=== PATIENT | male | born 1945 | race Caucasian/White ===

== ENCOUNTER 2019-12-09 01:03 | Outpatient (CLI) | payer MEDICARE, SELFPAY ==
[2019-12-09 19:09] LABS: SARS-CoV-2 RNA PCR Negative
== END 2019-12-09 01:04 | disposition home or self-care (01) ==
LOC: ANHCOVIDDT 01:05
PROVIDERS: PCP Family Medicine; Visit Provider Urology
DX: Z01.812 Encounter for preprocedural laboratory examination (principal); Z11.59 Encounter for screening for other viral diseases
CPT/HCPCS: 87635; C9803; U0003

== ENCOUNTER 2019-12-09 08:34 | Outpatient (CLI) | payer MEDICARE, SELFPAY ==
--- NOTE | 2019-12-09 09:10 | ECG_ITS ---
Measurements Intervals [place] Rate: 53 P: -23 ND: 160 QRS: 53 QRSD: 108 T: 20 QT: 377 QTc: 356 Interpretive Statements SINUS BRADYCARDIA POSSIBLE LEFT VENTRICULAR HYPERTROPHY BASELINE ARTIFACT- V4-V6 BORDERLINE ECG Electronically Signed On 12-09-2019 9:24:15 CDT by Naga Chambers D.O.
[2019-12-09 09:31] LABS: INR 0.9; Partial Thromboplastin Time 25.7 SECONDS (22.3-36.8); Prothrombin Time 12.3 Seconds (11.1-14.7)
[2019-12-09 09:35] LABS: Anion Gap 13.8 mmol/L (7-16); Blood Urea Nitrogen 24 mg/dL (9-20); Calcium 9.4 mg/dL (8.4-10.2); Carbon Dioxide 25 mmol/L (22-30); Chloride 103 mmol/L (98-107); Estimated Glomerular Filt Rate > 60; Glucose 169 mg/dL (75-110); Potassium 4.8 mmol/L (3.4-5.0); Sodium 137 mmol/L (137-145)
== END 2019-12-09 08:35 | disposition home or self-care (01) ==
LOC: ANHIMG 08:43
PROVIDERS: Anesthesiology; Urology; PCP Family Medicine; Visit Provider Urology
DX: N20.0 Calculus of kidney (principal); E11.9 Type 2 diabetes mellitus without complications
CPT/HCPCS: 36415; 80048; 85610; 85730; 87086; 87635; 93005; C9803; U0003

== ENCOUNTER 2019-12-10 00:23 | Day surgery (SDC) | payer MEDICARE, SELFPAY ==
[2019-12-08 16:17] VITALS: BMI 28.7
--- NOTE | 2019-12-09 11:13 | WPDANESEPPF ---
Anes - Initial Pre Proc Eval Procedure: Operation Date: 12/10/19 08:30 Proposed Procedures p Left Extracorporeal Shock Wave Lithotripsy - Bipin Ford MD Date/Time: 12/09/19 11:13 Surgeon: Bipin Ford MD Pre Op Diagnosis: Left Ureteral Stone Patient Data Age: 74 Gender: M Height: 1.78 m Weight: 90.9 kg Allergies Allergy/AdvReac Type Severity Reaction Status Date / Time bacitracin Allergy Unknown Nausea and Unverified 12/10/19 07:42 Vomiting neomycin Allergy Unknown SKIN Unverified 12/10/19 07:42 IRRITATION polymyxin B Allergy Unknown SKIN Unverified 12/10/19 07:42 IRRITATION Contrast Media Allergy Unknown Flushing Uncoded 12/10/19 07:42 Home Medications Medication Instructions Recorded Confirmed Type ascorbic acid (vitamin C) [Vitamin 1 g PO DAILY 12/08/19 12/08/19 History C] cinnamon bark [Cinnamon] 500 mg PO DAILY 12/08/19 12/08/19 History cyanocobalamin (vitamin B-12) 2,000 mcg PO DAILY 12/08/19 12/08/19 History fiber 3.4 g PO DAILY 12/08/19 12/08/19 History flaxseed oil 1,000 mg PO DAILY 12/08/19 12/08/19 History glimepiride 4 mg DAILY 12/08/19 12/08/19 History metformin 500 mg BID 12/08/19 12/08/19 History omega-3 fatty acids-fish oil [Fish 1 cap PO DAILY 12/08/19 12/08/19 History Oil] tamsulosin 4 mg PO HS 12/08/19 12/08/19 History Patient hx anesthesia problems: none Family hx anesthesia problems: none PMFSH Past Medical History Medical History (Updated 12/09/19 @ 11:13 by Nghia Patricia DO) Diabetes type 2, controlled DAPHNEY (obstructive sleep apnea) CPAP Social History Social History Smoking status: Never smoker Alcohol intake: never Substance use: never Living arrangements: with family Spiritual care concerns: No Anes - Eval Final PreProcedure Day of Procedure 12/09/19 11:13 Patient weight: overweight Heart: regular rate and rhythm Lungs: clear to auscultation and normal air movement Airway: Mallampati scale class II Neurological: alert and oriented Last oral intake: >/= 8 hours ASA classification: III Emergent: no Anesthetic plan: proceed Anesthesia type and monitoring: general LMA and standard monitoring Informed Consent: The patient's anesthetic plan and its attendant risks and benefits were discussed with the patient/family/POA. Questions were solicited and answers provided to the satisfaction of the patient/family/POA.
[2019-12-10] VITALS (7 sets, daily range): BP systolic 129–165; BP diastolic 64–97; PULSE 52–70; RESP 11–19; TEMP 36.3; O2SAT 99–100
--- NOTE | ~2019-12-10 | CT_ITS ---
EXAMINATION: CT abdomen pelvis wo con DATE: 12/10/2019 07:29 INDICATION: Lithotripsy. Left ureteral calculus. TECHNIQUE: Computed tomography (CT) of the abdomen and pelvis was performed without intravenous contr ast. Automated exposure control and iterative reconstruction technique were employed. Exam dose: 269 .14 mGy-cm total exam DLP. COMPARISON: 12/10/2019 KUB FINDINGS: Minimal discoid atelectasis or scarring in the lower lung zones. No infiltrate or consolida tion. Normal heart size. No pericardial or pleural effusion. The liver, gallbladder, bile ducts, spleen, pancreas and adrenal glands are unremarkable on this limi thu noncontrast examination. There are 2 nonobstructing lower pole right renal calculi measuring 3 mm or smaller. Approximately 4.5 and 5.5 mm nonobstructing lower pole left renal calculi. Approximately 5.6 x 4.3 x 7.2 mm left ureteral calculus at the L4 level. There is minimal if any left hydronephrosis. Urinary bladder is unremarkable. Moderate prostate prominence and multiple prostate calcifications. Normal caliber of the abdominal aorta. No intraperitoneal or retroperitoneal or pelvic mass lesion or adenopathy or ascites. There are numerous diverticula of the colon, primarily in the sigmoid area. No CT evidence of diverti culitis. Normal appendix. No bowel obstruction, bowel wall thickening, pneumatosis or intraperitoneal free air. Included skeletal structures are unremarkable. IMPRESSION: 5.6 x 4.3 x 7.2 mm left ureteral calculus at L4 level Bilateral nonobstructive nephrolithiasis Diverticulosis of the colon Reviewed, dictated and finalized at [facility] Reviewed, dictated and finalized at [facility].
--- NOTE | ~2019-12-10 | XR_ITS ---
XR abdomen/kub 1V DATE: 12/10/2019 06:42 INDICATION: Lithotripsy TECHNIQUE: AP projection, 2 views COMPARISON: None FINDINGS: There are 2 approximately 5 and 6 mm calcifications overlying the lower pole left kidney. There is an approximately 6 mm calcified density overlying the left ureter at the L4 level, likely a left ureteral calcified calculus. The psoas shadows are intact. No visceromegaly is evident. The bowel gas pattern is unremarkable, wit hout evidence of obstruction. IMPRESSION: Probable lower pole left renal and proximal to mid left ureteral calcified calculi Reviewed, dictated and finalized at [facility] Reviewed, dictated and finalized at [facility] IMPRESSION: Probable lower pole left renal and proximal to mid left ureteral ca lcified calculi
[2019-12-10] MEDS: LACTATED RINGERS 1,000 ML 30 ML IV CONT ×2 (08:00→09:26)
--- NOTE | 2019-12-10 08:06 | WPDHPUPDATE1 ---
History and Physical Update Update Date/Time: 12/10/19 08:06 History and Physical has been reviewed, including an updated exam of the patient. There are NO changes in the patient's condition. Risks, benefits, and alternatives have been discussed and questions answered. Patient agrees to proceed with procedure.Plan for eswl of left ureteral calculus.
[2019-12-10 08:13] LABS: Glucose Point of Care 183 (65-105)
[2019-12-10] MEDS: ceFAZolin 2 GM/D5W 50 ML 2 GM/50 ML BAG IVPB (08:31)
--- NOTE | 2019-12-10 09:11 | P.OP_ITS ---
Procedure Note - Detailed Date of procedure: 12/10/19 Pre-op diagnosis: Left Ureteral Stone Post-op diagnosis: same Procedure performed: ESWL left ureteral calculus 7 mm Description of procedure: patient was taken to the operative suite and c orrectly identified. Once general anesthesia was obtained the stone was localized in both planes. Three thousand shocks were given to the stone. Patient tolerated procedure well without any complications and was taken recovery room stable condition. He is instructed to call us if he develops any problems. Anesthesia: GLMA Surgeon: Bipin Ford MD Drains: No Packing: No Pathology: yes Complications: No immediate complications Condition: stable Disposition: PACU
[2019-12-10 09:39] LABS: Glucose Point of Care 150 (65-105)
== END 2019-12-10 10:51 | disposition home or self-care (01) ==
PROVIDERS: PCP Family Medicine; Visit Provider Urology
PROC: (CPT 50590; principal; 2019-12-10 08:30)
DX: N20.1 Calculus of ureter (principal); E11.9 Type 2 diabetes mellitus without complications; G47.33 Obstructive sleep apnea (adult) (pediatric); Z79.84 Long term (current) use of oral hypoglycemic drugs
CPT/HCPCS: 50590; 74018; 74176; A9270; J0690; J2250; J2405; J2704; J3010; J7120

== ENCOUNTER 2019-12-22 08:03 | Outpatient (CLI) | payer MEDICARE, SELFPAY ==
--- NOTE | ~2019-12-22 | XR_ITS ---
EXAMINATION: XR abdomen/kub 1V DATE: 12/22/2019 08:21 INDICATION: Calculus of left ureter. TECHNIQUE: A supine view of the abdomen on 2 radiographs was obtained. COMPARISON: CT abdomen and pelvis 10/10/2019 FINDINGS: There are two 5 mm stones in left kidney lower pole. There is a phlebolith in left pelvis. There are vascular calcifications in the pelvis. The left ureteral stone previously seen at L4 is no longer visible. There are no dilated loops of bowel. IMPRESSION: 1. Left kidney stones. Reviewed, dictated and finalized at [facility]. IMPRESSION: 1. Left kidney stones.
== END 2019-12-22 08:04 | disposition home or self-care (01) ==
LOC: ANHIMG 08:10
PROVIDERS: PCP Family Medicine; Visit Provider Urology
DX: N20.0 Calculus of kidney (principal)
CPT/HCPCS: 74018

== ENCOUNTER 2020-05-31 15:15 | Outpatient (CLI) | payer MEDICARE, SELFPAY ==
--- NOTE | ~2020-05-31 | XR_ITS ---
XR abdomen/kub 1V DATE: 05/31/2020 16:05 INDICATION: History of kidney stones TECHNIQUE: AP projection, 2 views COMPARISON: 12/22/2019 KUB 12/10/[address] abdomen pelvis FINDINGS: There is no significant change of approximately two 4-5 mm calcified stones at the lower po le of the left kidney compared to 12/22/2019 KUB. No other definite urinary tract calcification is not ed. 2 lower pole pinpoint nonobstructing right kidney stones were noted on 12/10/2019 CT abdomen pelvis examination but were radiographically occult on 12/22/[address] abdomen pelvis examina tion would be more sensitive for detection of urinary tract calculi. The psoas shadows are intact. No visceromegaly is evident. There is a moderately prominent amount of fecal material in the colon but no evidence of bowel obstruction. Included skeletal structures are unremarkable. IMPRESSION: Lower pole left nephrolithiasis appears relatively stable since 12/22/2019 Reviewed, dictated and finalized at [facility] Reviewed, dictated and finalized at [facility]. FILLER IMPRESSION: Lower pole left nephrolithiasis appears relatively stable since 12/03
== END 2020-05-31 15:16 | disposition home or self-care (01) ==
LOC: ANHIMG 15:27
PROVIDERS: PCP Family Medicine; Visit Provider Urology
DX: N20.0 Calculus of kidney (principal)
CPT/HCPCS: 74018

== ENCOUNTER 2022-07-03 11:24 | Outpatient (CLI) | payer MEDICARE, SELFPAY ==
--- NOTE | ~2022-07-03 | XR_ITS ---
Supine and upright views of the abdomen Clinical history: Renal stones COMPARISON: 05/31/2020 Findings: Bowel gas pattern is nonspecific. No evidence for obstruction or free air. Suspected 5 mm l eft lower pole renal stone. Osseous structures are intact. Impression: Suspected 5 mm left lower pole renal stone. Reviewed, dictated and finalized at [facility]. [employer] Impression: Suspected 5 mm left lower pole renal stone.
== END 2022-07-03 11:25 | disposition home or self-care (01) ==
PROVIDERS: PCP Family Medicine; Visit Provider Urology
DX: N20.0 Calculus of kidney (principal)
CPT/HCPCS: 74018

== ENCOUNTER 2023-01-12 12:33 | Emergency (ER) | payer MEDICARE, SELFPAY ==
[2023-01-12 12:40] VITALS: BP 126/70; PULSE 82; RESP 20; TEMP 36.4; O2SAT 100
--- NOTE | 2023-01-12 13:34 | WPDEDEXPGENP ---
HPI - General Ped General Chief complaint: Fever Stated complaint: fever/lower back pain Source: patient Mode of arrival: ambulatory Limitations: no limitations Nursing Documentation: reviewed/agree History of Present Illness HPI narrative: Patient presents requesting a medical screening evaluation. He indicates two nights ago he was experiencing some low back pain. He had about three episodes of nocturia that night. The following morning he woke from sleep with generalized body aches and subjective fever. He never experienced any dysuria, decreased force of urinary stream, hematuria. He has some chronic dribbling which he attributes to BPH, for which he takes Flomax. He has experienced kidney stones in the past but the pain he experienced 2 nights ago was bilateral in nature. At the present time he denies any symptoms whatsoever. He is getting ready to leave town for a vacation so wanted to be evaluated prior to the time of departure. Related Data Home Medications Medication Instructions Recorded Confirmed ascorbic acid (vitamin C) 1,000 mg 1 g PO DAILY 12/08/19 12/08/19 tablet (Vitamin C) cinnamon bark 500 mg capsule 500 mg PO DAILY 12/08/19 12/10/19 (Cinnamon) cyanocobalamin (vitamin B-12) 2,000 mcg PO DAILY 12/08/19 12/10/19 2,000 mcg tablet flaxseed oil 1,000 mg capsule 1,000 mg PO DAILY 12/08/19 12/10/19 glimepiride 4 mg tablet 4 mg DAILY 12/08/19 12/10/19 metformin 500 mg tablet 500 mg BID 12/08/19 12/10/19 omega-3 fatty acids-fish oil 360 1 cap PO DAILY 12/08/19 12/10/19 mg-1,200 mg capsule (Fish Oil) psyllium seed (with dextrose) oral 3.4 g PO DAILY 12/08/19 12/10/19 powder (fiber) tamsulosin 0.4 mg capsule 4 mg PO HS 12/08/19 12/10/19 rosuvastatin 20 mg tablet mg 01/12/23 Allergies Allergy/AdvReac Type Severity Reaction Status Date / Time bacitracin Allergy Unknown Nausea and Verified 12/10/19 08:42 Vomiting neomycin Allergy Unknown SKIN Verified 12/10/19 08:42 IRRITATION polymyxin B Allergy Unknown SKIN Verified 12/10/19 08:42 IRRITATION Contrast Media Allergy Unknown Flushing Uncoded 12/10/19 07:42 Pediatric Review of Systems Review of Systems: CONSTITUTIONAL: Reports recent subjective fever, now resolved. Denies chills or sweats. EYES: Denies visual changes, redness, or discharge. ENT: Denies rhinorrhea, congestion, sore throat, or otalgia. CARDIOVASCULAR: Denies chest pain, palpitations, or edema. RESPIRATORY: Denies cough or dyspnea. GASTROINTESTINAL: Denies abdominal pain, nausea, vomiting, or diarrhea. GENITOURINARY: Reports chronic dribbling. Reports nocturia 2 nights ago. Denies any current urinary symptoms. SKIN: Denies rash or itching. MUSCULOSKELETAL: Reports recent low back pain, now resolved. Denies joint pain, or myalgia. NEUROLOGIC: Denies headache, numbness, dizziness, or weakness. PSYCHIATRIC: Denies anxiety or depression. [facility] Past Medical History Medical History Diabetes type 2, controlled DAPHNEY (obstructive sleep apnea) CPAP Surgical History Surgical History No pertinent past surgical history Family History Family History Mother Family history non-contributory Social History Social History Smoking status: Never smoker Alcohol intake: never Substance use: never Living arrangements: with family Gender identity (if verbalized by the patient): Male Sexual Orientation (if Verbalized by the Patient): Straight or Heterosexual Spiritual care concerns: No Pediatric Exam Narrative: Physical exam: GENERAL: Well-appearing, well-nourished, and in no acute distress. HEAD: Normocephalic, atraumatic. EYES: PERRLA and EOMI. ENT: Nares clear, no rhinorrhea or epistaxis. Mucous membranes mois
== END 2023-01-12 13:39 | disposition home or self-care (01) ==
PROVIDERS: Emergency Provider Nurse Practitioner; PCP Family Medicine
DX: M54.50 Low back pain, unspecified (principal); R35.1 Nocturia; E11.9 Type 2 diabetes mellitus without complications; G47.33 Obstructive sleep apnea (adult) (pediatric)
CPT/HCPCS: 81003; 99212; G0463

== ENCOUNTER 2023-07-11 09:28 | Outpatient (CLI) | payer MEDICARE, SELFPAY ==
--- NOTE | ~2023-07-11 | XR_ITS ---
Supine and upright views of the abdomen Clinical history: Renal stone COMPARISON: 07/03/2022 Findings: Bowel gas pattern is nonspecific. No evidence for obstruction or free air. Left lower pole renal stones measure up to 9 mm in maximum diameter. Probable small right renal stones also present. Osseous structures are intact. Impression: Bilateral nephrolithiasis, as above. Reviewed, dictated and finalized at [facility]. [employer] Impression: Bilateral nephrolithiasis, as above.
== END 2023-07-11 09:29 | disposition home or self-care (01) ==
LOC: ANHIMG 09:33
PROVIDERS: PCP Family Medicine; Visit Provider Urology
DX: N20.0 Calculus of kidney (principal)
CPT/HCPCS: 74018

== ENCOUNTER 2024-02-12 16:54 | Emergency (ER) | payer MEDICARE, OTHER, SELFPAY ==
[2024-02-12 17:08] VITALS: BP 144/73; PULSE 77; RESP 20; TEMP 36.7; O2SAT 100
[2024-02-12 17:54] LABS: EDCOVIDSCREEN Negative (Negative); EDINFLUASCREEN Negative (Negative); EDINFLUBSCREEN Negative (Negative)
--- NOTE | 2024-02-12 21:21 | ED.URI ---
HPI - URI/Sore Throat General Chief Complaint: Upper Respiratory Infection Stated Complaint: cold symptoms Time Seen by Provider: 02/12/24 17:19 Source: patient, RN notes reviewed and old records reviewed Mode of arrival: ambulatory Limitations: no limitations History of Present Illness HPI Narrative: 78-year-old male to Express Care with complaint of cough, bilateral ear fullness / discomfort /popping, runny nose. Patient endorses decreased hearing in right ear. Patient reports flying home from [place] this morning and states that symptoms have become acutely worse post flight. Related Data Home Medications Medication Instructions Recorded Confirmed ascorbic acid (vitamin C) 1,000 mg 1 g PO DAILY 12/08/19 02/12/24 tablet (Vitamin C) cinnamon bark 500 mg capsule 500 mg PO DAILY 12/08/19 02/12/24 (Cinnamon) flaxseed oil 1,000 mg capsule 1,000 mg PO DAILY 12/08/19 02/12/24 glimepiride 4 mg tablet 4 mg PO BID 12/08/19 02/12/24 metformin 500 mg tablet 1,000 mg PO BID 12/08/19 02/12/24 omega-3 fatty acids-fish oil 360 1 cap PO DAILY 12/08/19 02/12/24 mg-1,200 mg capsule (Fish Oil) tamsulosin 0.4 mg capsule 0.4 mg PO HS 12/08/19 02/12/24 rosuvastatin 20 mg tablet 20 mg PO DAILY 01/12/23 02/12/24 Allergies Allergy/AdvReac Type Severity Reaction Status Date / Time bacitracin Allergy Unknown Nausea and Verified 02/12/24 17:01 Vomiting neomycin Allergy Unknown SKIN Verified 02/12/24 17:01 IRRITATION polymyxin B Allergy Unknown SKIN Verified 02/12/24 17:01 IRRITATION iohexol AdvReac Intermediate Flushing Verified 02/12/24 17:02 [From contrast - CT, X-RAY] Review of Systems Review of Systems: All systems reviewed & are unremarkable except as noted in HPI and below Constitutional: Constitutional: Reports no additional constitutional complaints Eyes: Eyes: Reports no additional eye complaints ENT: Reports as per HPI, Reports otalgia ( Bilateral fullness, popping) and Reports hearing loss ( right) Cardiovascular: Cardiovascular: Reports no additional cardiovascular complaints, Denies chest pain and Denies dyspnea Respiratory: Respiratory: Reports as per HPI, Reports cough and Denies dyspnea Musculoskeletal: Musculoskeletal: Reports no additional musculoskeletal complaints Neurologic: Reports system reviewed and no additional complaints, except as documented Psychiatric: Psychiatric: Reports no additional psychiatric complaints PMFSH Past Medical History Medical History Diabetes type 2, controlled DAPHNEY (obstructive sleep apnea) CPAP Surgical History Surgical History No pertinent past surgical history Family History Family History Mother Family history non-contributory Social History Social History Smoking status: Never smoker Alcohol intake: never Substance use: never Living arrangements: with family Gender identity (if verbalized by the patient): Male Sexual Orientation (if Verbalized by the Patient): Straight or Heterosexual Spiritual care concerns: No Comments At the time of my signature, I reviewed and agree with the nursing past medical, surgical, social, and family history. There is no relevant family history pertinent to the patient complaint. Exam Const: General: cooperative, healthy appearing, no acute distress, well developed, alert, well groomed and well nourished Nutritional Appearance: well nourished Orientation/consciousness: patient oriented x3 Limitations: no limitations HENMT: Head: normal to inspection Ears: external ears normal and TM abnormal erythematous on the right, with fluid behind the TM on the right and with loss of landmarks on the right Face/Nose/Sinus: Normal external nose present, Normal nares
== END 2024-02-12 17:48 | disposition home or self-care (01) ==
PROVIDERS: Emergency Provider Nurse Practitioner Family; PCP Family Medicine
DX: H66.91 Otitis media, unspecified, right ear (principal); Z20.822 Contact with and (suspected) exposure to COVID-19; E11.9 Type 2 diabetes mellitus without complications; G47.33 Obstructive sleep apnea (adult) (pediatric)
CPT/HCPCS: 87426; 87804; 99213; G0463

== ENCOUNTER 2024-02-29 10:39 | Emergency (ER) | payer MEDICARE, OTHER, SELFPAY ==
[2024-02-29 10:45] VITALS: BP 131/50; PULSE 72; RESP 17; TEMP 36.8; O2SAT 99
[2024-02-29] MEDS: TETANUS,DIPHTHERIA,AC PERTUSSIS ADULT (0.5 ML) BOOSTRIX IM (11:36)
--- NOTE | 2024-02-29 11:46 | ED.GENADULT ---
HPI - General Adult General Chief complaint: Extremity Injury, Upper Stated complaint: Finger Injury Source: patient Mode of arrival: ambulatory Limitations: no limitations History of Present Illness HPI narrative: Patient presents for evaluation of a wound to the palmar aspect of the distal phalanx of the left ring finger. Symptom onset last night. He was connecting to piece of pipe when his finger got stuck between the pieces. He initially had sharp pain but denies pain at the present time. No loss of range of motion. He will had a Band-Aid. It is no longer bleeding. He is right-hand dominant. Date of last tetanus unknown. He is diabetic. He is not checking his blood sugar at home but believes his last A1c was 7.9. Related Data Home Medications Medication Instructions Recorded Confirmed ascorbic acid (vitamin C) 1,000 mg 1 g PO DAILY 12/08/19 02/12/24 tablet (Vitamin C) cinnamon bark 500 mg capsule 500 mg PO DAILY 12/08/19 02/12/24 (Cinnamon) flaxseed oil 1,000 mg capsule 1,000 mg PO DAILY 12/08/19 02/12/24 glimepiride 4 mg tablet 4 mg PO BID 12/08/19 02/12/24 metformin 500 mg tablet 1,000 mg PO BID 12/08/19 02/12/24 omega-3 fatty acids-fish oil 360 1 cap PO DAILY 12/08/19 02/12/24 mg-1,200 mg capsule (Fish Oil) tamsulosin 0.4 mg capsule 0.4 mg PO HS 12/08/19 02/12/24 rosuvastatin 20 mg tablet 20 mg PO DAILY 01/12/23 02/12/24 prednisolone acetate 1 % eye drp 02/29/24 02/29/24 drops,suspension Allergies Allergy/AdvReac Type Severity Reaction Status Date / Time bacitracin Allergy Unknown Nausea and Verified 02/29/24 10:50 Vomiting neomycin Allergy Unknown SKIN Verified 02/29/24 10:50 IRRITATION polymyxin B Allergy Unknown SKIN Verified 02/29/24 10:50 IRRITATION iohexol AdvReac Intermediate Flushing Verified 02/29/24 10:50 [From contrast - CT, X-RAY] Review of Systems Review of Systems: CONSTITUTIONAL: Denies fever, chills, or sweats. EYES: Denies visual changes, redness, or discharge. ENT: Denies rhinorrhea, congestion, sore throat, or otalgia. CARDIOVASCULAR: Denies chest pain, palpitations, or edema. RESPIRATORY: Denies cough or dyspnea. GASTROINTESTINAL: Denies abdominal pain, nausea, vomiting, or diarrhea. GENITOURINARY: Denies dysuria or hematuria. SKIN: Reports wound to the left ring finger MUSCULOSKELETAL: Denies back pain, joint pain, or myalgia. NEUROLOGIC: Denies headache, numbness, dizziness, or weakness. PSYCHIATRIC: Denies anxiety or depression. [facility] Past Medical History Medical History Diabetes type 2, controlled DAPHNEY (obstructive sleep apnea) CPAP Surgical History Surgical History No pertinent past surgical history Family History Family History Mother Family history non-contributory Social History Social History Smoking status: Never smoker Alcohol intake: never Substance use: never Living arrangements: with family Gender identity (if verbalized by the patient): Male Sexual Orientation (if Verbalized by the Patient): Straight or Heterosexual Spiritual care concerns: No Exam Narrative: GENERAL: Well-appearing, well-nourished, and in no acute distress. HEAD: Normocephalic, atraumatic. EYES: PERRLA and EOMI. ENT: Nares clear, no rhinorrhea or epistaxis. Mucous membranes moist. Oropharynx without tonsillar hypertrophy exudate or other lesions. Bilateral TMs pearly patel nonbulging NECK: Supple. No adenopathy or masses. No carotid bruits or JVD CHEST: Clear to auscultation. No respiratory distress. No wheezes rales or rhonchi HEART: Regular rate and rhythm. No murmur heard. Normal peripheral pulses. ABDOMEN: Soft, nontender, nondistended, normal active bowel sounds. EXTREMITIES: Normal range of motion. No edema. SKIN: 5 mm area of excoriation to the palmar aspect of the distal phalanx of the left ring finger. Wound bed red. No active drainage NEURO: No focal deficits. Alert and oriented x3. PSYCH: Normal mood and affect. Course Course Emergency Course: This is a 78-year-old male who presented for evaluation of wound to left ring finger. Denies pain warranting any imaging. At the present time wound does not appear infected. He will continue to use antibiotic ointment. Will provided with a prescription for cephalexin but he should only take if he develops redness of signs of infection. Advised he needs to monitor his blood sugar closely and with readings over 200 it may cause delayed wound healing. Follow-up provider. Go to the ER for worsening symptoms. Patient in agreement with plan care Level of Care: Express Care Visit Vital Signs Vital signs: Vital Signs Temperature 36.8 C 02/29/24 10:45 Pulse Rate 72 02/29/24 10:45 Respiratory Rate 17 02/29/24 10:45 Blood Pressure 131/50 L 02/29/24 10:45 Pulse Oximetry 99 02/29/24 10:45 Oxygen Delivery Room Air 02/29/24 10:45 Temperature 36.8 C 02/29/24 10:45 Pulse Rate 72 02/29/24 10:45 Respiratory Rate 17 02/29/24 10:45 Blood Pressure 131/50 L 02/29/24 10:45 Pulse Oximetry 99 02/29/24 10:45 Oxygen Delivery Room Air 02/29/24 10:45 Medical Decision Making Vital Signs Vital Signs: Vital Signs Temperature 36.8 C 02/29/24 10:45 Pulse Rate 72 02/29/24 10:45 Respiratory Rate 17 02/29/24 10:45 Blood Pressure 131/50 L 02/29/24 10:45 Pulse Oximetry 99 02/29/24 10:45 Oxygen Delivery Room Air 02/29/24 10:45 Temperature 36.8 C 02/29/24 10:45 Pulse Rate 72 02/29/24 10:45 Respiratory Rate 17 02/29/24 10:45 Blood Pressure 131/50 L 02/29/24 10:45 Pulse Oximetry 99 02/29/24 10:45 Oxygen Delivery Room Air 02/29/24 10:45 Discharge Plan Discharge Clinical Impression: Abrasion of left ring finger Patient Disposition: Home, Self-Care Condition: Stable Instructions: Antibiotic Form, Abrasion (ED) Patient Language: [place] Prescriptions: New cephalexin 500 mg capsule 500 mg PO Q6H Qty: 40 0RF No Action rosuvastatin 20 mg tablet 20 mg PO DAILY prednisolone acetate 1 % drops,suspension metformin 500 mg tablet 1,000 mg PO BID ascorbic acid (vitamin C) [Vitamin C] 1,000 mg Tablet 1 g PO DAILY flaxseed oil 1,000 mg Capsule 1,000 mg PO DAILY tamsulosin 0.4 mg capsule 0.4 mg PO HS glimepiride 4 mg tablet 4 mg PO BID cinnamon bark [Cinnamon] 500 mg Capsule 500 mg PO DAILY omega-3 fatty acids-fish oil [Fish Oil] 360-1,200 mg Capsule 1 cap PO DAILY Follow-up/Referrals: Harms,Jose Armando Ramirez M.D. [Primary Care Provider] - Time of Disposition: 11:35
== END 2024-02-29 11:41 | disposition home or self-care (01) ==
PROVIDERS: Emergency Provider Nurse Practitioner; PCP Family Medicine
DX: S60.415A Abrasion of left ring finger, initial encounter (principal); X58.XXXA Exposure to other specified factors, initial encounter; Z23 Encounter for immunization; E11.9 Type 2 diabetes mellitus without complications; G47.33 Obstructive sleep apnea (adult) (pediatric)
CPT/HCPCS: 90471; 90715; 99213; G0463

== ENCOUNTER 2024-07-27 14:40 | Outpatient (CLI) | payer MEDICARE, SELFPAY ==
--- NOTE | ~2024-07-27 | XR_ITS ---
XR abdomen/kub 1V 07/27/2024 15:01 Indication: Ureteral stone Procedure: KUB Comparison: 07/11/2023 Findings: There are bilateral renal stones. Bowel gas pattern nonobstructive with moderate colonic fe tess loading. Mild lumbar spondylosis. No acute osseous abnormality. Impression: 1: Bilateral nephrolithiasis. Reviewed, dictated and finalized at location A. Impression: 1: Bilateral nephrolithiasis.
--- OUTSIDE RECORDS SUMMARY | 2024-07-27 17:13 | XMS_ITS | Referral Summary ---
Author Organization [facility] Medical Office Building B Address [address] [place] [address] Care Team Providers [facility] [place] [facility] Name Role Phone Jose Armando Meadows MD Primary Care Provider [phone] Encounters Date Type Department Care Team Description 06/22/2024 8:15 AM STEEL INSPECTOR Office Visit [facility] Primary Care at [address] [address] Jose Armando Meadows MD Type 2 diabetes mellitus with hyperglycemia, without long-term current use of insulin (HCC) (Primary Dx); Coronary artery disease of [place] artery of [place] heart with stable angina pectoris; Hyperlipidemia associated with type 2 diabetes mellitus (HCC); Benign prostatic hyperplasia, unspecified whether lower urinary tract symptoms present; DAPHNEY on CPAP 06/18/2024 10:05 AM STEEL INSPECTOR Lab [facility] [address] [place] [address] Controlled type 2 diabetes mellitus without complication, without long-term current use of insulin (HCC) 06/17/2024 Telephone [facility] [address] [place] [address] Jose Armando Meadows MD Additional Services Or Orders from Last 3 Months Allergies Active Allergy Reactions Criticality Noted Date Comments Bacitracin Nausea & Vomiting Low 12/10/2019 Bacitracin-Polymyxin B Hives Medium 06/18/2023 Iodinated Contrast Media Other (See comments),Anaphylaxis High 12/27/2015 Reaction: FLUSHING, Metrizamide Anaphylaxis High 12/27/2015 Neomycin Other (See comments) Low 12/10/2019 Kyhinoio-Xzdgjyqhpf-Ra lymyxin Other (See comments) Reaction: NON-HEALING OF WOUND, REDNESS OF SKIN, Polymyxin B Other (See comments) Low 12/10/2019 Medications saw palmetto 160 mg capsule Take as directed 0 0 7 Active cinnamon bark (CINNAMON) 500 mg capsule Take as directed 0 0 7 Active ascorbic acid, vitamin C, 1,000 mg tablet,chewable Take as directed 0 0 7 Active omega-3 fatty acids (FISH OIL CONCENTRATE) 1,000 mg capsule Take one by mouth one time per day 0 0 9 Active cyanocobalamin, vitamin B-12, 1,000 mcg tablet extended release Take by mouth. Active flaxseed 1,000 mg capsule Take by mouth. Active multivitamin tablet tabletIndications: Vitamin Deficiency Prevention Take by mouth. Active garlic extract 600 mg tabletIndications: Type 2 diabetes mellitus without complication, without long-term current use of insulin (HCC) Take 1,200 mg by mouth 2 (two) times a day. Active acidophilus-pectin , citrus 100 million cell-10 mg capsuleIndications :Type 2 diabetes mellitus without complication, without long-term current use of insulin (HCC) Take 2 tablets by mouth daily. Active inulin (FIBER GUMMIES ORAL) Take by mouth Ac tive aspirin 81 mg enteric coated tablet Take 1 tablet (81 mg total) by mouth daily 30 tablet 11 0 Active mupirocin (BACTROBAN) 2 % ointmentIndication s:Superficial laceration Apply topically 3 (three) times a day 22 g 0 Active blood glucose diagnostic stripIndications:T ype 2 diabetes mellitus with hyperlipidemia (HCC) Use to check blood glucose up to four times daily. Dx: E11.69 Non insulin Dependent One Touch Ultra 360 each 2 1 Active blood glucose diagnostic (FreeStyle Test) strip Use to check blood glucose up to daily Dx: E11.69 Non Insulin Dependent One Touch Ultra 100 each 2 1 Active glimepiride (AMARYL) 4 mg tablet TAKE 2 TABLETS(8 MG) BY MOUTH DAILY BEFORE BREAKFAST 180 tablet 3 4 Active difluprednate (DUREZOL) 0.05 % drops INSTILL 1 DROP IN LEFT EYE THREE TIMES DAILY DIRECTED 4 Active nystatin cream APPLY TO RASH IN GROIN TWICE DAILY FOR 6 WEEKS OR UNTIL RESOLVED 4 Active rosuvastatin (CRESTOR) 20 mg tablet TAKE 1 TABLET(20 MG) BY MOUTH DAILY 90 tablet 1 4 Active tamsulosin (FLOMAX) 0.4 mg extended release capsule TAKE 1 CAPSULE(0.4 MG) BY MOUTH DAILY 100 capsule 4 Active metFORMIN (GLUCOPHAGE) 500 mg tablet Take 2 tablets (1,000 mg total) by mouth 2 (two) times a day with meals 360 tablet 1 5 Active empagliflozin (JARDIANCE) 25 mg tablet Take 1 tablet (25 mg total) by mouth daily 90 tablet 3 5 Active Active Problems Problem Noted Date Diagnosed Date DAPHNEY on CPAP 06/22/2024 Assessment & Plan (06/22/2024 8:40 AM STEEL INSPECTOR): Continues on nightly CPAP and will follow response. Daytime increased energy, decreased fatigue. Benign prostatic hyperplasia 06/22/2024 Assessment & Plan (06/22/2024 8:40 AM STEEL INSPECTOR): COntinues on tamsulosin and krishna guillen and will follow response. Type 2 diabetes mellitus wit h hyperglycemia, without long-term current use of insulin 04/01/2023 Assessment & Plan (04/01/2023 3:08 PM STEEL INSPECTOR): Hba1c was Lab Results Component Value Date HGBA1C 7.2 04/01/2023 today, indicating suboptimal DM control Goal Hba1c under 7 and blood glucose level in the 120-160 range was explained Low carb diet and daily aerobic and /or resistant exercise were advised Prevention and treatment of hyypoglcyemia were discussed with the patient Blood glucose monitoring : 1 x day Adjustment to medications: Continue current regimen with Metformin and Glimepiride Might benefit form SGLS-2 inhinbitos, pt not interested Need for an eye exam was also explained. Type 2 diabetes mellitus wit h hyperglycemia, without long-term current use of insulin 09/05/2022 Assessment & Plan (06/22/2024 8:39 AM STEEL INSPECTOR): Needs improved control. Continue metformin and glimepiride. NO side effects to medication Initiate therapy with jardiance. Reivwed mechanisms of action, reviewed glucosuria and potential UTI/tinea infections. Aggressive hydration and will follow response. Assessment & Plan (09/05/2022 3:34 PM CDT): Hba1c was Lab Results Component Value Date HGBA1C 7.0 09/05/2022 today, indicating adequate DM control Goal Hba1c and blood glucose explained Diet and exercise were advised Prevention and treatment of hyypoglcyemia were discussed with the patient Risk of hypoglycemia with Glmepiride was explained Blood glucose monitoring : 1-2 x day Adjustment to medications: Continue with Metformin and glimepiride Would consider adding an SGLT-2 inhibitor if hba1c rises again Family history of colon cancer in father 021 Overview (02/20/2021): Added automatically from request for surgery [id number] Personal history of colonic polyps 02/20/2021 Overview (02/20/2021): Added automatically from request for surgery [id number] Encounter for screening colonoscopy 02/20/2021 Overview (02/20/2021): Added automatically from request for surgery [id number] Coronary artery disease of n ative artery of [place] heart with stable angina pectoris 01/19/2020 Assessment & Plan (06/22/2024 8:39 AM STEEL INSPECTOR): Secondary prevnetion. Continues on antiplatelet and statin therapy and will follow response. NO active anginal s/s. Assessment & Plan (02/20/2022 10:53 AM CDT): 1. Nonischemic Stress Echo to 90 percent MPHR. 2. Abnormal Stress ECG with ST changes suggestive of ischemia. 3. The Echocardiographic response was nonischemic. 4. Normal mitral valve appearance and function. Mild mitral valve regurgitation. 5. Normal tricuspid valve appearance and function. Mild tricuspid regurgitation. Normal right ventricular systolic pressure. He is stable so no rec., continue The ASA, Assessment & Plan (01/19/2020 1:20 PM CDT): Since he has a history of underlying coronary artery disease with least 25% lesions 8 years ago I would like to update a stress test and would be comfort with a stress echo at the present time. His chest pain that he describes today appears to be more musculoskeletal in nature rather than true anginal symptoms, but is important update that test. Also, he is not on aspirin so will begin coated baby aspirin 81 mg daily. His EKG today demonstrates sinus rhythm with only minor nonspecific T-wave changes, is otherwise unremarkable Calculus of kidney 09/09/2014 Overview (08/09/2016): Kidney stone Hyperlipidemia associated with type 2 diabetes denice dent 09/18/2013 Overview (08/09/2016): DMII WO CMP NT ST UNCNTR Assessment & Plan (06/22/2024 8:40 AM STEEL INSPECTOR): Stable and will follow response. Assessment & Plan (04/01/2023 3:07 PM STEEL INSPECTOR): Chronic, well controlled Continue Atorvastatin Assessment & Plan (09/05/2022 3:35 PM CDT): LDL goal under 70 explained Continue Rosuvastatin Assessment & Plan (02/20/2022 10:55 AM CDT): TC 90/ LDL 44 He remains at goal Continue the crestor 20 mg . Assessment & Plan (01/19/2020 1:14 PM CDT): TC 179/ HDL 29/ TG 136/ LDL 136 Since he is new, I discussed the benefits of statin therapy and will begin crestor 20 mg a day and recheck levels Immunizations Immunization Administration Dates Next Due Influenza, Quadrivalent, Hig h Dose, Preservative Free, Intrr 02/14/2020 Influenza, Quadrivalent, Spl it, Preservative Free, Intramuscular 04/09/2018 Influenza, Split 07/13/2013,07/13/2013 Influenza, Trivalent, High D ose, Split, Preservative Free, Intramuscular 04/06/2019 Influenza, Unspecified 03/05/2024,2023(Deferred: Patient Refused),06/24/2023(Deferred: Patient Refused),05/05/2023(Deferred: Patient Refused),12/17/2022(Deferred: Patient Refused),05/05/2022(Deferred: Patient Refused),05/05/2022(Deferred: Patient Refused),05/05/2021(Deferred: Patient Refused),02/20/2021,01/12/2021(Deferre d: Patient Refused),01/12/2021(Deferred: Patient Refused),01/12/2021(Deferred: Patient Refused),05/19/2017(Deferred: Patient Refused) Pfizer SARS-CoV-2 Monovalent Vaccination (12+ Yrs) PURPLE 02/20/2021,07/21/2020,06/29/2020 Pneumococcal Conjugate PCV 13 04/09/2018 Pneumococcal Polysaccharide PPV23 02/08/2015 Tdap 02/29/2024,06/16/2018 ZOSTER LIVE 05/18/2015 Social History Tobacco Use Types Packs/Day Years Used Date Smoking Tobacco: Never Smokeless Tobacco: Never Tobacco Cessation:Counseling Given: Not Answered Alcohol Use Standard Drinks/Week Comments No 0 (1 standard drink = 0.6 oz pur e alcohol) AUDIT-C Answer Date Recorded Q1: How often do you have a drink containing alc ohol? Never 06/12/2021 Average Number of Drinks Not on file 022 Frequency of Binge Drinking Not on file 12/2021 PHQ-2 Answer Date Recorded PHQ-2 Total Score (If total score is 3 or more points, staff should administer the PHQ-9) 0 06/22/2024 Sex and Gender Information Value Date Recorded Sex Assigned at Not on file Legal Sex Male 6:12 PM STEEL INSPECTOR Gender Identity Not on file Sexual Orientation Not on file Last Filed Vital Signs Vital Sign Reading Time Taken Comments Blood Pressure 136/68 06/22/2024 8:11 AM STEEL INSPECTOR Pulse 68 06/22/2024 8:11 AM STEEL INSPECTOR Temperature 36.8 C (98.2 F) 06/22/2024 8:11 AM STEEL INSPECTOR Respiratory Rate 18 04/01/2023 2:24 PM STEEL INSPECTOR Oxygen Saturation 98% 06/22/2024 8:11 AM STEEL INSPECTOR Inhaled Oxygen Concentration - - Weight 90.9 kg (200 lb 6.4 oz) 06/22/2024 8:11 A M STEEL INSPECTOR Height 177.8 cm (5' 10 ) 06/22/2024 8:11 AM STEEL INSPECTOR Body Mass Index 28.75 06/22/2024 8:11 AM STEEL INSPECTOR Plan of Treatment Not on file Procedures Procedure Name Priority Date/Time Associated Diagnosis Comments EGFR Routine 06/18/2024 10:12 AM STEEL INSPECTOR Controlled type 2 diabetes mellitus without complication, without long-term current use of insulin (HCC) DIFFERENTIAL AUTO Routine 06/18/2024 10: 12 AM STEEL INSPECTOR Controlled type 2 diabetes mellitus without complication, without long-term current use of insulin (HCC) LIPID PANEL Routine 06/18/2024 10:12 AM STEEL INSPECTOR Controlled type 2 diabetes mellitus without complication, without long-term current use of insulin (HCC) HEMOGLOBIN A1C Routine 06/18/2024 10:12 AM STEEL INSPECTOR Controlled type 2 diabetes mellitus without complication, without long-term current use of insulin (HCC) COMPREHENSIVE METABOLIC PANEL Routine 06/18/2024 10:12 AM STEEL INSPECTOR Controlled type 2 diabetes mellitus without complication, without long-term current use of insulin (HCC) CBC WITH AUTO DIFFERENTIAL Routine 06/18/2024 10:12 AM STEEL INSPECTOR Controlled type 2 diabetes mellitus without complication, without long-term current use of insulin (HCC) ALBUMIN CREATININE RATIO, URINE Routine 06/18/2024 10:12 AM STEEL INSPECTOR Controlled type 2 diabetes mellitus without complication, without long-term current use of insulin (HCC) DIABETIC EYE EXAM Routine 04/18/2023 COLONOSCOPY 06/12/2021 7:26 AM STEEL INSPECTOR from Last 3 Months or Most Recently Relevant to Health Maintenance Results * eGFR (06/18/2024 10:12 AM STEEL INSPECTOR) eGFR 85 >=60 mL/min/1. 73 m2 Comment: Interpretive Data Reference Interval Normal >/= 90 mL/min/1.73m2 Mildly decreased* 60 - 89 mL/min/1.73m2 Mildly to moderately decreased 45 - 59 mL/min/1.73m2 Moderately to severely decreased 30 - 44 mL/min/1.73m2 Severely decreased 15 - 29 mL/min/1.73m2 Kidney Failure < 15 mL/min/1.73m2 *Relative to young adult level Estimated glomerular filtration rate is determined by the 2020 CKD-EPI equation recommended by the National Kidney Foundation (A Unifying Approach to GFR Estimation: Recommendations of the NKF-ASK Task Force on Reassessing the Inclusion of Race in Diagnosing Kidney Disease, JASN 2020). The CKD-EPI equation should not be used for patients with unstable renal function and has not been validated in children and those over 70. Current interpretive data was last reviewed 2021. Testing performed by: [address], [address] Blood 06/18/2024 10:1 2 AM STEEL INSPECTOR 06/18/2024 1:30 PM STEEL INSPECTOR Jose Armando Meadows MD LAB BLOOD ORDERABLES Stephany ritter Result DAWN CONTRERAS ([place]) [facility] Department [place] [address] * Differential, auto (06/18/2024 10:12 AM STEEL INSPECTOR) Pathologist [facility] Neutrophil abs 2.3 1.5 - 6.5 K/cumm Comment:Testing performed by : [facility], [address] [place] [address]., [id number] Imm gran abs 0.0 0.0 - 0.1 K/cumm DAWN CONTRERAS ([place]) Comment:Testing performed by : [address], [address] Lymphocyte abs 1.2 0.8 - 3.3 K/cumm DAWN [facility] ([place]) Comment:Testing performed by : [address] [place]., [address] Monocyte abs 0.4 0.2 - 0.8 K/cumm [facility] ([place]) Comment:Testing performed by : [facility], [address] [place] [address]., [address] Eosinophil abs 0.3 0.0 - 0.5 K/cumm [facility] ([place]) Comment:Testing performed by : [facility], [address] [place] [address]., [address] Basophil abs 0.0 0.0 - 0.1 K/cumm [facility] ([place]) Comment:Testing performed by : [facility], [address] [place] [address]., [address] Neutrophil pct 54.0 % [facility] ([place]) Comment: Interpretive Data Percent cell count reference ranges are not reported, since discordance with absolute values may lead to misinterpretation of CBC data. Current Interpretive Data was last revised on 2017. Testing performed by: [address] [address] Imm gran pct 1.0 % [facility] ([place]) Comment: Interpretive Data Percent cell count reference ranges are not reported, since discordance with absolute values may lead to misinterpretation of CBC data. Current Interpretive Data was last revised on 2017. Testing performed by: [address] [address] Lymphocyte pct 27.8 % [facility] ([place]) Comment: Interpretive Data Percent cell count reference ranges are not reported, since discordance with absolute values may lead to misinterpretation of CBC data. Current Interpretive Data was last revised on 2017. Testing performed by: [address] [address] Monocyte pct 9.1 % [facility] ([place]) Comment: Interpretive Data Percent cell count reference ranges are not reported, since discordance with absolute values may lead to misinterpretation of CBC data. Current Interpretive Data was last revised on 2017. Testing performed by: [address] [address] Eosinophil pct 7.4 % [facility] ([place]) Comment: Interpretive Data Percent cell count reference ranges are not reported, since discordance with absolute values may lead to misinterpretation of CBC data. Current Interpretive Data was last revised on 2017. Testing performed by: [facility], [address] [place] [address]., [address] Basophil pct 0.7 % [facility] ([place]) Comment: Interpretive Data Percent cell count reference ranges are not reported, since discordance with absolute values may lead to misinterpretation of CBC data. Current Interpretive Data was last revised on 2017. Testing performed by: [address] [address] Blood 06/18/2024 10:1 2 AM STEEL INSPECTOR 06/18/2024 1:23 PM STEEL INSPECTOR Jose Armando Meadows MD LAB BLOOD ORDERABLES Stephany ritter Result [facility] ([place]) [facility] Department [place] [address] * CBC with auto differential (06/18/2024 10:12 AM STEEL INSPECTOR) WBC 4.2 3.8 - 9.9 K/cumm Comment:Testing performed by : [address], [address] Hgb 15.0 13.0 - 17.5 g/dL [facility] ([place]) Comment:Testing performed by : [address] [address] Hct 44.3 38.9 - 50.3 % [facility] ([place]) Comment:Testing performed by : [address] [address] Plt 199 150 - 400 K/cumm [facility] ([place]) Comment:Testing performed by : [address] [address] MPV 9.8 9.1 - 12.3 fL [facility] ([place]) Comment:Testing performed by : [address], [address] RBC 4.74 4.30 - 5.80 M/cumm [facility] ([place]) Comment:Testing performed by : [facility], [address] [place] [address], [address] MCV 93.5 81.3 - 96.4 fL [facility] ([place]) Comment:Testing performed by : [address], [address] MCH 31.6 27.1 - 33.3 pg [facility] ([place]) Comment:Testing performed by : [address], [address] MCHC 33.9 32.3 - 35.7 g/dL [facility] ([place]) Comment:Testing performed by : [facility], [address] [place] [address], [address] RDW CV 12.0 11.1 - 14.9 % [facility] ([place]) Comment:Testing performed by : [facility], [address] [place] [address], [address] RDW SD 41.7 35.7 - 48.1 fL [facility] ([place]) Comment:Testing performed by : [address], [address] NRBC abs 0.00 0.00 - 0.01 K/cumm [facility] ([place]) Comment:Testing performed by : [address], [address] Blood 06/18/2024 10:1 2 AM STEEL INSPECTOR 06/18/2024 1:23 PM STEEL INSPECTOR us Jose Armando Meadows MD LAB BLOOD ORDERABLES Stephany ritter Result [facility] ([place]) [facility] Department [place] [address] * (ABNORMAL) Albumin Creatinine Ratio, Urine (06/18/2024 10:12 AM STEEL INSPECTOR) Albumin Ur 30.9 mg/L Comment: Interpretive Data No reference range established. Current interpretive data was last revised 2018. Testing performed by: [address], [address] Creatinine Ur 84.1 mg/dL [facility] ([place]) Comment: Interpretive Data No reference range established. Current interpretive data was last revised 2018. Testing performed by: [facility], [address] [place] [address]., [address] Albumin Creatinine Ratio, Ur 37(H) 1 - 29 mg/g [facility] ([place]) Comment:Testing performed by : [address] [address] Urine 06/18/2024 10:1 2 AM STEEL INSPECTOR 06/18/2024 1:23 PM STEEL INSPECTOR Jose Armando Meadows MD LAB URINE ORDERABLES Stephany l Result Performing Organization Address City/[facility]/ZIP Co de Phone Number BELKISAC DIANE ([place]) [address] [place] [address] [place] [address] * (ABNORMAL) Hemoglobin A1c (06/18/2024 10:12 AM STEEL INSPECTOR) Hgb A1C 8.8(H) 4.0 - 5.6 % Comment:Testing performed by : [facility], [address] [place] [address], [address] Estimated Average Glucose 206 mg/dL DAWN CONTRERAS ([place]) Comment: The ADA recommends reporting an estimated Average Glucose (eAG) with all Hemoglobin A1c results using the equation derived from a study of 507 normal and diabetic adults. Minority populations were underrepresented and children were not included. (Diabetes Care 31:9390-2829, 2008). The eAG is not equivalent to a fasting glucose. Testing performed by: [facility], [address] [place] [address]., [id number] Blood 06/18/2024 10:1 2 AM STEEL INSPECTOR 06/18/2024 1:23 PM STEEL INSPECTOR us Jose Armando Meadows MD LAB BLOOD ORDERABLES Stephany l Result [facility] ([place]) [facility] [place] [address] * (ABNORMAL) Lipid panel (06/18/2024 10:12 AM STEEL INSPECTOR) Cholesterol 88 30 - 199 mg/dL Comment: Interpretive Data Ages < or = 19 years Acceptable: <170 mg/dL Borderline high: 170-199 mg/dL High: >or= 200 mg/dL Ages > or = 20 years Desirable: <200 mg/dL Borderline high: 200-239 mg/dL High: >or= 240 mg/dL Literature References: 1. Expert Panel on Integrated Guidelines for Cardiovascular Health and Risk Reduction in Children and Adolescents. Pediatrics 2011;128:S213 2. NCEP Expert Panel. Circulation 2004;110:227 Current Interpretive Data was last revised on 2017. Testing performed by: [address] [address] Triglycerides 72 <=149 mg/dL DAWN CONTRERAS ([place]) Comment: Interpretive Data Ages < or = 9 years Acceptable: <75 mg/dL Borderline high: 75-99 mg/dL High: >or= 100 mg/dL Ages 10 to 20 years Acceptable: <90 mg/dL Borderline high: 90-129 mg/dL High: >or= 130 mg/dL Ages > or = 20 years Desirable: <150 mg/dL Borderline high: 150-199 mg/dL High: 200-499 mg/dL Very high: >or= 499 mg/dL Literature References: 1. Expert Panel on Integrated Guidelines for Cardiovascular Health and Risk Reduction in Children and Adolescents. Pediatrics 2011;128:S213 2. NCEP Expert Panel. Circulation 2003;110:227 Current Interpretive Data was last revised on 2017. Testing performed by: [facility], [address] [place] [address]., [address] HDL 38(L) >=40 mg/dL DAWN Do ([place]) Comment: Interpretive Data Ages < or = 19 years Acceptable: >45 mg/dL Borderline low: 40-45 mg/dL Low: <40 mg/dL Ages > or = 20 years Desirable: >or= 60 mg/dL Low: <40 mg/dL Literature References: 1. Expert Panel on Integrated Guidelines for Cardiovascular Health and Risk Reduction in Children and Adolescents. Pediatrics 2011;128:S213 2. NCEP Expert Panel. Circulation 2004;110:227 Current Interpretive Data was last revised on 2017. Testing performed by: [facility], [address] [place] [address]., [address] LDL, calculated 34 <=129 mg/dL DAWN CONTRERAS ([place]) Comment: Interpretive Data Ages < or = 19 years Acceptable: <110 mg/dL Borderline high: 110-129 mg/dL High: >or= 130 mg/dL Ages > or = 20 years Optimal: <100 mg/dL Near optimal: 100-129 mg/dL Borderline high: 130-159 mg/dL High: >160 mg/dL Calculated using the Gordo LDL-C estimating equation. This equation was implemented on 2023. Prior to this date LDL-C was estimated using the Friedewald equation. Literature References: 1. Expert Panel on Integrated Guidelines for Cardiovascular Health and Risk Reduction in Children and Adolescents. Pediatrics 2011;128:S213 2. NCEP Expert Panel. Circulation 2004;110:227 3. Gordo Cruz et al. CORINA Cardiol. 2019September 02;5(5):540-548. doi: 10.1001/[email or web address] Current Interpretive Data was last revised on 2023. Testing performed by: [address] [address] Non-HDL Cholesterol 50 mg/dL DAWN CONTRERAS ([place]) Comment: Interpretive Data Ages < or = 19 years Acceptable: <120 mg/dL Borderline high: 120-144 mg/dL High: >145 mg/dL Ages > or = 20 years When triglycerides are >200 mg/dL, Non-HDL cholesterol is a secondary target of therapy with treatment goals that are 30 mg/dL greater than the LDL cholesterol target. Literature References: 1. Expert Panel on Integrated Guidelines for Cardiovascular Health and Risk Reduction in Children and Adolescents. Pediatrics 2011;128:S213 2. NCEP Expert Panel. Circulation 2004;110:227 Current Interpretive Data was last revised on 2017. Testing performed by: [facility], [address] [place] [address]., [address] Chol/HDL ratio 2 CL CONTRERAS ([place]I) Comment:Testing performed by : [facility], [address] [place] [address]., [address] Blood 06/18/2024 10:1 2 AM STEEL INSPECTOR 06/18/2024 1:23 PM STEEL INSPECTOR Jose Armando Meadows MD LAB BLOOD ORDERABLES Stephany ritter Result [facility] ([place]) [facility] Department [place] [address] * (ABNORMAL) Comprehensive metabolic panel (06/18/2024 10:12 AM STEEL INSPECTOR) Sodium 136 135 - 145 mmol/L Comment:Testing performed by : [facility], [address] [place] [address]., [id number] Potassium, pl 4.8 3.3 - 4.9 mmol/L [facility] Comment:Testing performed by : [facility], [address] [place] [address]., [id number] Chloride 100 97 - 110 mmol/L [facility] ([facility]) Comment:Testing performed by : [facility], [address] [place] [address], [id number] CO2 25 22 - 32 mmol/L [facility] ([facility]) Comment:Testing performed by : [address], [address] Anion gap 11 2 - 15 mmol/L [facility] Comment:Testing performed by : [facility], [address] [place] [address], [id number] BUN 18 6 - 25 mg/dL [facility] ([facility]) Comment:Testing performed by : [address], [address] Creatinine 0.93 0.80 - 1.30 mg/dL [facility] Comment:Testing performed by : [address] [address] Glucose 296(H) 70 - 199 mg/dL [facility] Comment: Interpretive Data Fasting glucose >/= 126 mg/dl is diagnostic for diabetes. Fasting is defined as no caloric intake for at least 8 hours. Fasting glucose between 100 mg/dl to 125 mg/dl is diagnostic of prediabetes. In a patient with classic symptoms of hyperglycemia or hyperglycemic crisis, a random glucose >/= 200 mg/dl is diagnostic for diabetes. In the absence of unequivocal hyperglycemia, results should be confirmed by repeat testing. The classification and Diagnosis of Diabetes Diabetes Care 2021; 46: S19-S40. Current interpretive data was last revised 2022. Testing performed by: [facility], [address] [place] [address]., [id number] Calcium 9.4 8.5 - 10.3 mg/dL [facility] ([facility]) Comment:Testing performed by : [facility], [address] [place] [address]., [address] Bilirubin, total 0.7 0.1 - 1.2 mg/dL [facility] ([facility]) Comment:Testing performed by : [facility], [address] [place] [address]., [address] Protein, pl 6.5 6.5 - 8.5 g/dL [facility] ([facility]) Comment:Testing performed by : [facility], [address] [place] [address], [id number] Albumin 4.3 3.5 - 5.0 g/dL [facility] ([facility]) Comment:Testing performed by : [facility], [address] [place] [address], [address] Alk phos 61 40 - 130 Units/L [facility] ([facility]) Comment:Testing performed by : [facility], [address] [place] [address], [id number] ALT 18 7 - 55 Units/L [facility] ([facility]) Comment:Testing performed by : [facility], [address] [place] [address], [id number] AST 20 10 - 50 Units/L [facility] ([facility]) Comment:Testing performed by : [address], [id number] Blood 06/18/2024 10:1 2 AM STEEL INSPECTOR 06/18/2024 1:23 PM STEEL INSPECTOR us Jose Armando Meadows MD LAB BLOOD ORDERABLES Stephany l Result [facility] ([facility]) [facility] Department [place] [address] * Diabetic Eye Exam (04/18/2023) us Historical Provider HEALTH MAINTENANCE Final Result * COLONOSCOPY (06/12/2021 7:26 AM STEEL INSPECTOR) Anatomical Region Laterality Modality Other Narrative Procedure Note Sumit Fuller MD - 06/12/2021 7:26 AM CST [facility] Patient Name: Shea Payne Procedure Date: 06/12/2021 7:26 AM Date of : 1945 Admit Type: Outpatient Age: 75 Gender: Male Attending MD: Sumit Fuller M.D. Room: [facility] ENDOSCOPY ROOM 2 Note Status: Finalized Patient Profile: Refer to note in patient chart for documentation of history and physical. Procedure: Colonoscopy Indications: High risk colon cancer surveillance: Personalhistory of colonic polyps, Family history of colon cancerin a first-degree relative before age 60 years, Last colonoscopy: November 2010 Referring MD: Jose Armando Meadows M.D. Providers: Sumit Fuller M.D. Impression: - Hemorrhoids found on perianal exam. - One 3 mm polyp in the transverse colon, removedwith a jumbo cold forceps. Resected and retrieved. - Diverticulosis in the sigmoid colon. - The examination was otherwise normal. Recommendation: - Discharge patient to home. - Resume previous diet. - Continue present medications. - Await pathology results. - Repeat colonoscopy in 5 years for surveillance. - Return to primary care physician as previously scheduled. Medicines: Propofol per Anesthesia Complications: No immediate complications. Estimated Blood Loss: Estimated blood loss: none. Procedure: Pre-Anesthesia Assessment: - This assessment was completed [Time ofAssessment] prior to the administration of sedation. The benefits, risks and alternatives of theprocedure and sedation were discussed and informed consentwas obtained. All questions were answered. Please referto the signed informed consent document in the medical record. The bowel preparation used was Miralax and bisacodyl tablets via single dose instruction. The scope was passed under direct vision. TheColonoscope [id number] was introduced through the anus and advanced to the the cecum, identified by appendiceal orifice and ileocecal valve. The colonoscopy was performed without difficulty. The patient tolerated the procedure well. The qualityof the bowel preparation was adequate to identifypolyps 6 mm and larger in size. Findings: Hemorrhoids were found on perianal exam. A 3 mm polyp was found in the transverse colon. The polyp wassessile. The polyp was removed with a jumbo cold forceps. Resection andretrieval were complete. Verification of patient identification for thespecimen was done by the physician and nurse using the patient's name andbirth date. Estimated blood loss was minimal. Multiple small and large-mouthed diverticula were found in thesigmoid colon. The exam was otherwise without abnormality. Electronically signed by Sumit Fuller M.D. Sumit Fuller M.D. 06/12/2021 8:49:48 AM Number of Addenda: 0 Note Initiated On: 06/12/2021 7:26 AM Procedure Code(s): --- Professional --- 38867, Colonoscopy, flexible; with biopsy, single or multiple Diagnosis Code(s): --- Professional --- K57.30, Diverticulosis of large intestine without perforation orabscess without bleeding Z80.0, Family history of malignant neoplasm of digestive organs K63.5, Polyp of colon K64.9, Unspecified hemorrhoids Z86.010, Personal history of colonic polyps CPT copyright 2019 [employer]. All rights reserved. The codes documented in this report are preliminary and upon artist representative reviewmay be revised to meet current compliance requirements. Recognized by the [place] [employer] for promoting quality in endoscopy Sumit Fuller MD ENDOSCOPY PROCEDURES Final Re sult from Last 3 Months or Most Recently Relevant to Health Maintenance [place] [address] MEDICARE [facility] MEDICARE [employer] MEDICARE SUPPLEMENT Advance Directives For more information, please contact: [phone] * Full Code (Latest Code Status on File) Date Activated Date Inactivated Comments 06/12/2021 8:05 AM 06/12/2021 1:44 PM * Full Code Date Activated Date Inactivated Comments 06/12/2021 8:04 AM 06/12/2021 8:05 AM Care Teams [place] [employer] Relationship Specialty Start Date End Date Jose Armando Meadows MD [address] [place] [address] PCP - General 08/02/16
--- OUTSIDE RECORDS SUMMARY | 2024-07-27 17:13 | XMS_ITS | Clinical Summary ---
Author Organization [facility] Address [address] [place] [id number] Care Team Providers Care Device Sales Consultant Name Role Phone Jose Armando Meadows MD Primary Care Provider [phone] Allergies Active Allergy Reactions Criticality Noted Date Comments Iodinated Contrast Media Anaphylaxis,Other (see comment) High 12/27/2015 Reaction: FLUSHING, Bacitracin-Polymyxin B Hives 06/18/2023 Medications glimepiride (AMARYL) 1 MG tablet Take 1 tablet (1 mg total) by mouth every morning before breakfast. Active metFORMIN (GLUCOPHAGE) 500 MG tablet Take 1 tablet (500 mg total) by mouth 2 (two) times daily with meals. Active tamsulosin (FLOMAX) 0.4 MG Cap Take 1 capsule (0.4 mg total) by mouth daily. Active aspirin 81 MG chewable tablet Chew 1 tablet (81 mg total) by mouth daily. Active rosuvastatin (CRESTOR) 20 MG tablet Take 1 tablet (20 mg total) by mouth nightly at bedtime. Active Active Problems No known active problems Social History Tobacco Use Types Packs/Day Years Used Date Smoking Tobacco: Never Smokeless Tobacco: Never Tobacco Cessation:Counseling Given: Not Answered Alcohol Use Standard Drinks/Week Comments Not Currently 0 (1 standard drink = 0.6 oz pur e alcohol) Sex and Gender Information Value Date Recorded Sex Assigned at Not on file Legal Sex Male 2:16 PM DETENTION DEPUTY Gender Identity Not on file Sexual Orientation Not on file Last Filed Vital Signs Vital Sign Reading Time Taken Comments Blood Pressure 134/62 06/30/2023 9:45 AM DETENTION DEPUTY Pulse 65 06/30/2023 6:45 AM DETENTION DEPUTY Temperature 36.1 C (97 F) 06/30/2023 6:45 AM DETENTION DEPUTY Respiratory Rate 16 06/30/2023 9:45 AM DETENTION DEPUTY Oxygen Saturation 97% 06/30/2023 9:45 AM DETENTION DEPUTY Inhaled Oxygen Concentration - - Weight 95.3 kg (210 lb) 06/18/2023 2:33 PM DETENTION DEPUTY Height 177.8 cm (5' 10 ) 06/18/2023 2:33 PM DETENTION DEPUTY Body Mass Index 30.13 06/18/2023 2:33 PM DETENTION DEPUTY Plan of Treatment Health Maintenance Due Date Last Done Comments Hepatitis C 08[birth year]18/1963 Annual Medicare Wellness Visit 08/18/2012 RSV Immunization or 60+ Years (1 - 1-dose 75+ series) 08/18/2022 COVID-19 Vaccine ( season) 2024 02/18/2022, 02/20/2021, 07/21/2020, Additional history exists Influenza Adult (#1) 2024 02/20/2021, 04/06/2019, 04/09/2018, Additional history exists DTaP, Tdap and Td Vaccines (2 - Td or Tdap) 06/16/2028 06/16/2018 Pneumococcal Vaccine: 65+ Years Completed 04/09/2018, 02/08/2015 Zoster Vaccines Completed 03/11/2023, 10/04, 05/18/2015 Meningococcal B Vaccine Aged Out No l onger eligible based on patient's age to complete this topic Meningococcal Vaccine Aged Out No missy saleem eligible based on patient's age to complete this topic RSV Immunizations Under 20 Months Aged Out No longer eligible based on patient's age to complete this topic Medical Devices Implanted Type Area Sweeper Cleaner Industrial Device Identifier Shelf Expiration Date Model / Serial / Lot Tecnis Iol Implanted:Qty: 1 on 06/30/2023 by River Solorio MD at [facility] Left: Eye [employer] 12/09/2025 [id number] / / [id number] Corneal Graft Implanted:Qty: 1 on 06/30/2023 by River Solorio MD at [facility] Left: Eye 10/31/2024 [id number] [facility] / / [id number] [place] [address] [facility] MEDICARE Care Teams Device Sales Consultant Relationship Specialty Start Date End Date Jose Armando Meadows MD [address] [place] [address] PCP - General 06/29/23
--- OUTSIDE RECORDS SUMMARY | 2024-07-27 17:13 | XMS_ITS | Clinical Summary ---
Author Organization [facility] Address [address], [facility] [address] [place] [address] Phone Care Team Providers Care Correctional Cook Name Role Phone Jose Armando Meadows MD Primary Care Provider [phone] Allergies Active Allergy Reactions Criticality Noted Date Comments Iodinated Contrast Media Anaphylaxis 12/27/2015 Medications metFORMIN (GLUCOPHAGE) 500 MG TabletIndicatio ns:Type 2 Diabetes Mellitus Take 500 mg by mouth 2 times daily (with meals). Indications: Type 2 Diabetes Active glimepiride (AMARYL) 4 MG Tablet Take 4 mg by mouth every morning. Active aspirin EC 81 MG Tablet Delayed Response Take 81 mg by mouth daily. Active Multiple Vitamin (MULTI-VITAMIN PO) Take 1 Tab by mouth daily. Active Flaxseed, Linseed, (FLAXSEED OIL) 1000 MG Capsule Take 3 Caps by mouth 2 times daily. Active CINNAMON PO Take 1 Cap by mouth 2 times daily. Active vitamin E (TOCOPHEROL) 400 UNIT Capsule Take 400 Units by mouth daily. Active Cyanocobalamin (VITAMIN B12 PO) Take 1,200 Caps by mouth daily. Active Ascorbic Acid (VITAMIN C) 1000 MG Tablet Take 1 Tab by mouth daily. Active Family History Medical History Relation Name Comments Colon Cancer Father Emphysema Mother Relation Name Status Comments Father Mother Social History Tobacco Use Types Packs/Day Years Used Date Smoking Tobacco: Never Smokeless Tobacco: Never Alcohol Use Standard Drinks/Week Comments No 0 (1 standard drink = 0.6 oz pur e alcohol) Sex and Gender Information Value Date Recorded Sex Assigned at Not on file Legal Sex Male 12:13 AM CDT Gender Identity Not on file Sexual Orientation Not on file Last Filed Vital Signs Vital Sign Reading Time Taken Comments Blood Pressure 127/61 01/03/2016 12:39 PM CDT Pulse 58 01/03/2016 10:37 AM CDT Temperature 36 C (96.8 F) 01/03/2016 12:39 PM CDT Respiratory Rate 20 01/03/2016 12:39 PM CDT Oxygen Saturation 98% 01/03/2016 12:39 PM CDT Inhaled Oxygen Concentration - - Weight 95.3 kg (210 lb) 12/27/2015 1:00 PM CDT Height 177.8 cm (5' 10 ) 12/27/2015 1:00 PM CDT Body Mass Index 30.13 12/27/2015 1:00 PM CDT Plan of Treatment Health Maintenance Due Date Last Done Comments Hepatitis C Virus (HCV) Screening 1945 TdaP Immunization 1945 Pneumococcal Immunization (5 0+ years) (1 of 1 - PCV) 08/18/1997 Zoster Immunization (1 of 2) 08/18/1997 Respiratory Syncytial Virus (RSV) Immunization (Adult) (1 - 1-dose 75+ series) 08/18/2022 Influenza Immunization (#1) 2024 SARS-COV-2 Immunization ( season) 2024 Colonoscopy High Risk Discontinued 01/03/2016 Colonoscopy Discontinued 01/03/2016 Colorectal Cancer Screening Discontinued Cologuard Discontinued Hepatitis B Immunization Aged Out No longer eligible based on patient's age to complete this topic Immunochemical Fecal Occult Blood Discontinued Meningococcal Immunization (ACWY) Aged Out No longer eligible based on patient's age to complete this topic Rotavirus Immunization Aged Out No lo nger eligible based on patient's age to complete this [place] [address] MEDICARE [employer] Care Teams Correctional Cook Relationship Specialty Start Date End Date [place] [address] PCP - General Internal Medicine 01/03/16
--- OUTSIDE RECORDS SUMMARY | 2024-07-27 17:13 | XMS_ITS | Clinical Summary ---
Author Organization [facility] Building B Address [address] [place] [address] Care Team Providers Care Plastic Eye Technician Name Role Phone Jose Armando Meadows MD Primary Care Provider [phone] Allergies Active Allergy Reactions Criticality Noted Date Comments Bacitracin Nausea & Vomiting Low 12/10/2019 Bacitracin-Polymyxin B Hives Medium 06/18/2023 Iodinated Contrast Media Other (See comments),Anaphylaxis High 12/27/2015 Reaction: FLUSHING, Metrizamide Anaphylaxis High 12/27/2015 Neomycin Other (See comments) Low 12/10/2019 Lzkwxtva-Uifksmkzih-Ao lymyxin Other (See comments) Reaction: NON-HEALING OF [...] 06/22/2024 Assessment & Plan (06/22/2024 8:40 AM ACCIDENT INVESTIGATOR): Continues on nightly CPAP and will follow response. Daytime increased energy, decreased fatigue. Benign prostatic hyperplasia 06/22/2024 Assessment & Plan (06/22/2024 8:40 AM ACCIDENT INVESTIGATOR): COntinues on tamsulosin and saw palmetto and will follow response. Type 2 diabetes mellitus wit h hyperglycemia, without long-term current use of insulin 04/01/2023 Assessment & Plan (04/01/2023 3:08 PM ACCIDENT INVESTIGATOR): Hba1c was Lab Results Component Value Date [...] 09/05/2022 Assessment & Plan (06/22/2024 8:39 AM ACCIDENT INVESTIGATOR): Needs improved control. Continue metformin and glimepiride. [...] (02/20/2021): Added automatically from request for surgery [id number] Personal history of colonic polyps 02/20/2021 Overview (02/20/2021): Added automatically from request for surgery [id number] Encounter for screening colonoscopy 02/20/2021 Overview (02/20/2021): Added automatically from request for surgery [id number] Coronary artery disease of n ative artery of [place] heart with stable angina pectoris 01/19/2020 Assessment & Plan (06/22/2024 8:39 AM ACCIDENT INVESTIGATOR): Secondary prevnetion. Continues on antiplatelet and statin [...] stone Hyperlipidemia associated with type 2 diabetes m jailene 09/18/2013 Overview (08/09/2016): DMII WO CMP NT ST UNCNTR Assessment & Plan (06/22/2024 8:40 AM ACCIDENT INVESTIGATOR): Stable and will follow response. Assessment & Plan (04/01/2023 3:07 PM ACCIDENT INVESTIGATOR): Chronic, well controlled Continue Atorvastatin Assessment & [...] 20 mg a day and recheck levels Encounters Date Type Department Care Team Description 06/22/2024 8:15 AM ACCIDENT INVESTIGATOR Office Visit [facility] Primary Care at [address] [id number] Jose Armando Meadows MD Type 2 diabetes mellitus with hyperglycemia, without long-term current use of insulin (HCC) (Primary Dx); Coronary artery disease of [place] artery of [place] heart with stable angina pectoris; Hyperlipidemia associated with type 2 diabetes mellitus (HCC); Benign prostatic hyperplasia, unspecified whether lower urinary tract symptoms present; DAPHNEY on CPAP 06/18/2024 10:05 AM ACCIDENT INVESTIGATOR Lab [facility] [address] [place] [address] Controlled type 2 diabetes mellitus without complication, without long-term current use of insulin (HCC) 06/17/2024 Telephone [facility] [address] [place] [address] Jose Armando Meadows MD Additional Services Or Orders from Last 3 Months Immunizations Immunization Administration Dates Next Due Influenza, [...] PPV23 02/08/2015 Tdap 02/29/2024,06/16/2018 ZOSTER LIVE 05/18/2015 Surgical History Surgery Date Site/Laterality Comments COLONOSCOPY 11/21/2010 LITHOTRIPSY 05/05/2019 - 05/04/2020 Medical History Medical History Date Comments Diabetes mellitus (HCC) diabetes mellitus Calculus of kidney 2005 Nephrolithias is Family History Medical History Relation Name Comments Other Maternal Grandmother Sudden unknown with childbirth; Other Mother adopted; Relation Name Status Comments Father Maternal Grandmother Alive Mother Social History Tobacco Use Types Packs/Day [...] on file Legal Sex Male 6:12 PM ACCIDENT INVESTIGATOR Gender Identity Not on file Sexual Orientation Not on file Obstetrics History Last Filed Vital Signs Vital Sign Reading Time Taken Comments Blood Pressure 136/68 06/22/2024 8:11 AM ACCIDENT INVESTIGATOR Pulse 68 06/22/2024 8:11 AM ACCIDENT INVESTIGATOR Temperature 36.8 C (98.2 F) 06/22/2024 8:11 AM ACCIDENT INVESTIGATOR Respiratory Rate 18 04/01/2023 2:24 PM ACCIDENT INVESTIGATOR Oxygen Saturation 98% 06/22/2024 8:11 AM ACCIDENT INVESTIGATOR Inhaled Oxygen Concentration - - Weight 90.9 kg (200 lb 6.4 oz) 06/22/2024 8:11 A M ACCIDENT INVESTIGATOR Height 177.8 cm (5' 10 ) 06/22/2024 8:11 AM ACCIDENT INVESTIGATOR Body Mass Index 28.75 06/22/2024 8:11 AM ACCIDENT INVESTIGATOR Plan of Treatment Health Maintenance Due Date Last Done Comments Hepatitis C Screening 1945 Hepatitis B Screening 08/18/1963 Zoster Vaccine (2 of 3) 07/13/2015 05/18/2015 Foot Exam 09/06/2023 09/05/2022, 11/02, 04/11/2020, Additional history exists Covid-19 Vaccine (2023-2 5 season) 2024 02/20/2021, 07/21/2020, 06/29/2020 Dilated Eye Exam 04/18/2024 04/18/2023, , 01/20/2018 Hemoglobin A1C 12/16/2024 06/18/2024, 12/03, 06/17/2023, Additional history exists Well Visit 65+ 12/22/2024 12/23/2023, 12/03, 11/20/2021, Additional history exists Albumin Creatinine Ratio, Urine 06/18/2025 06/18/2024, 06/17/2023, 05/22/2022, Additional history exists Lipid Panel 06/18/2025 06/18/2024, 12/03, 06/17/2023, Additional history exists eGFR 06/18/2025 06/18/2024, 12/03, 06/24/2023, Additional history exists Depression Screening 06/22/2025 06/22/2024, 12/23/2023, 06/24/2023, Additional history exists Fall Risk Assessment 06/22/2025 06/22/2024, 12/23/2023, 06/24/2023, Additional history exists DTaP/Tdap/Td Vaccine (3 - Td or Tdap) 02/28/2034 02/29/2024, 06/16/2018 Pneumococcal vaccine 65+ Completed 04/09/2018, 11/2014 Colon Cancer Screening-CT Colonography Discontinued 06/12/2021, 11/21/2010 Colon Cancer Screening-Colonoscopy Discontinued 06/12/2021, 11/21/2010 Colon Cancer Screening-DNA Stool Discontinued 06/12/19, 11/21/2010 Colon Cancer Screening-FIT Discontinued 06/12/2021, Colon Cancer Screening-FOBT Discontinued 06/12/2021, 0 11/21/2010 Colon Cancer Screening-Sigmoidoscopy Discontinued 06/12/2021, 11/21/2010 Colorectal Cancer Screening Discontinued Influenza Vaccine Completed 03/05/2024, , 02/14/2020, Additional history exists Procedures Procedure Name Priority Date/Time Associated Diagnosis Comments EGFR Routine 06/18/2024 10:12 AM ACCIDENT INVESTIGATOR Controlled type 2 diabetes mellitus without complication, without long-term current use of insulin (HCC) DIFFERENTIAL AUTO Routine 06/18/2024 10: 12 AM ACCIDENT INVESTIGATOR Controlled type 2 diabetes mellitus without complication, without long-term current use of insulin (HCC) LIPID PANEL Routine 06/18/2024 10:12 AM ACCIDENT INVESTIGATOR Controlled type 2 diabetes mellitus without complication, without long-term current use of insulin (HCC) HEMOGLOBIN A1C Routine 06/18/2024 10:12 AM ACCIDENT INVESTIGATOR Controlled type 2 diabetes mellitus without complication, without long-term current use of insulin (HCC) COMPREHENSIVE METABOLIC PANEL Routine 06/18/2024 10:12 AM ACCIDENT INVESTIGATOR Controlled type 2 diabetes mellitus without complication, without long-term current use of insulin (HCC) CBC WITH AUTO DIFFERENTIAL Routine 06/18/2024 10:12 AM ACCIDENT INVESTIGATOR Controlled type 2 diabetes mellitus without complication, without long-term current use of insulin (HCC) ALBUMIN CREATININE RATIO, URINE Routine 06/18/2024 10:12 AM ACCIDENT INVESTIGATOR Controlled type 2 diabetes mellitus without complication, without long-term current use of insulin (HCC) DIABETIC EYE EXAM Routine 04/18/2023 COLONOSCOPY 06/12/2021 7:26 AM ACCIDENT INVESTIGATOR from Last 3 Months or Most Recently Relevant to Health Maintenance Results * eGFR (06/18/2024 10:12 AM ACCIDENT INVESTIGATOR) eGFR 85 >=60 mL/min/1. 73 m2 Comment: [...] was last reviewed 2021. Testing performed by: [facility], [address] [place] [address], [place]., [address] Blood 06/18/2024 10:1 2 AM ACCIDENT INVESTIGATOR 06/18/2024 1:30 PM ACCIDENT INVESTIGATOR us Jose Armando Meadows MD LAB BLOOD ORDERABLES Stephany stone Result DAWN [facility] [place]) 1 [facility] [place] [address] * Differential, auto (06/18/2024 10:12 AM ACCIDENT INVESTIGATOR) Neutrophil abs 2.3 1.5 - 6.5 K/cumm Comment:Testing performed by : [facility], [address] [place] [address], [id number] Imm gran abs 0.0 0.0 - 0.1 K/cumm [facility] ([facility]) Comment:Testing performed by : [facility], [address] [place] [address], [address] Lymphocyte abs 1.2 0.8 - 3.3 K/cumm [facility] ([place]) Comment:Testing performed by : [facility], [address] [place] [address], [id number] Monocyte abs 0.4 0.2 - 0.8 K/cumm [facility] ([place]) Comment:Testing performed by : [address], [address] Eosinophil abs 0.3 0.0 - 0.5 K/cumm [facility] ([facility]) Comment:Testing performed by : [facility], [address] [place] [address], [address] Basophil abs 0.0 0.0 - 0.1 K/cumm [facility] ([place]) Comment:Testing performed by : [address], [address] Neutrophil pct 54.0 % [facility] ([facility]) Comment: Interpretive Data Percent cell count reference ranges are not reported, since discordance with absolute values may lead to misinterpretation of CBC data. Current Interpretive Data was last revised on 2017. Testing performed by: [facility], [address] [place] [address]., [address] Imm gran pct 1.0 % [facility] ([facility]) Comment: Interpretive Data Percent cell count reference ranges are not reported, since discordance with absolute values may lead to misinterpretation of CBC data. Current Interpretive Data was last revised on 2017. Testing performed by: [address], [address] Lymphocyte pct 27.8 % [facility] ([facility]) Comment: Interpretive Data Percent cell count reference ranges are not reported, since discordance with absolute values may lead to misinterpretation of CBC data. Current Interpretive Data was last revised on 2017. Testing performed by: [facility], [address] [place] [address]., [address] Monocyte pct 9.1 % DAWN CONTRERAS ([facility]) Comment: Interpretive Data Percent cell count reference ranges are not reported, since discordance with absolute values may lead to misinterpretation of CBC data. Current Interpretive Data was last revised on 2017. Testing performed by: [address] [address] Eosinophil pct 7.4 % CL [facility] ([facility]) Comment: Interpretive Data Percent cell count reference ranges are not reported, since discordance with absolute values may lead to misinterpretation of CBC data. Current Interpretive Data was last revised on 2017. Testing performed by: [facility], [address] [place] [address]., [address] Basophil pct 0.7 % [facility] ([place]) Comment: Interpretive Data Percent cell count reference ranges are not reported, since discordance with absolute values may lead to misinterpretation of CBC data. Current Interpretive Data was last revised on 2017. Testing performed by: [address] [address] Blood 06/18/2024 10:1 2 AM ACCIDENT INVESTIGATOR 06/18/2024 1:23 PM ACCIDENT INVESTIGATOR us Jose Armando Meadows MD LAB BLOOD ORDERABLES Stephany l Result [facility] ([place]) 1 [facility] [place] [address] * CBC with auto differential (06/18/2024 10:12 AM ACCIDENT INVESTIGATOR) WBC 4.2 3.8 - 9.9 K/cumm Comment:Testing performed by : [address] [address] Hgb 15.0 13.0 - 17.5 g/dL DAWN CONTR[facility]AS ([place]) Comment:Testing performed by : [address], [address] Hct 44.3 38.9 - 50.3 % [facility] ([place]) Comment:Testing performed by : [address], [address] Plt 199 150 - 400 K/cumm [facility] ([place]) Comment:Testing performed by : [address], [address] MPV 9.8 9.1 - 12.3 fL [facility] ([place]) Comment:Testing performed by : [address], [address] RBC 4.74 4.30 - 5.80 M/cumm [facility] ([place]) Comment:Testing performed by : [address], [address] MCV 93.5 81.3 - 96.4 fL [facility] ([place]) Comment:Testing performed by : [address], [address] MCH 31.6 27.1 - 33.3 pg [facility] ([facility]) Comment:Testing performed by : [address], [address] MCHC 33.9 32.3 - 35.7 g/dL [facility] ([facility]) Comment:Testing performed by : [address], [address] RDW CV 12.0 11.1 - 14.9 % [facility] ([facility]) Comment:Testing performed by : [address], [address] RDW SD 41.7 35.7 - 48.1 fL [facility] ([facility]) Comment:Testing performed by : [address], [address] NRBC abs 0.00 0.00 - 0.01 K/cumm [facility] ([facility]) Comment:Testing performed by : [address], [address] Blood 06/18/2024 10:1 2 AM ACCIDENT INVESTIGATOR 06/18/2024 1:23 PM ACCIDENT INVESTIGATOR Jose Armando Meadows MD LAB BLOOD ORDERABLES Stephany l Result Performing Organization Address City/[facility]/ZIP Co de Phone Number [facility] ([place]) 1 [facility] [place] [address] * (ABNORMAL) Albumin Creatinine Ratio, Urine (06/18/2024 10:12 AM ACCIDENT INVESTIGATOR) Pathologist [facility] Albumin Ur 30.9 mg/L Comment: Interpretive Data No reference range established. Current interpretive data was last revised 2018. Testing performed by: [address] [address] Creatinine Ur 84.1 mg/dL [facility] ([facility]) Comment: Interpretive Data No reference range established. Current interpretive data was last revised 2018. Testing performed by: [address] [address] Albumin Creatinine Ratio, Ur 37(H) 1 - 29 mg/g [facility] ([facility] Comment:Testing performed by : [address] [address] Urine 06/18/2024 10:1 2 AM ACCIDENT INVESTIGATOR 06/18/2024 1:23 PM ACCIDENT INVESTIGATOR Jose Armando Meadows MD LAB URINE ORDERABLES Stephany l Result Performing Organization Address [facility] Co de Phone Number [facility] ([place]) 1 [facility] [place] [address] * (ABNORMAL) Hemoglobin A1c (06/18/2024 10:12 AM ACCIDENT INVESTIGATOR) Pathologist [facility] Hgb A1C 8.8(H) 4.0 - 5.6 % Comment:Testing performed by : [address] [address] Estimated Average Glucose 206 mg/dL [facility] ([facility] Comment: The ADA recommends reporting an estimated Average Glucose (eAG) with all Hemoglobin A1c results using the equation derived from a study of 507 normal and diabetic adults. Minority populations were underrepresented and children were not included. (Diabetes Care 31:1057-9021, 2008). The eAG is not equivalent to a fasting glucose. Testing performed by: [address], [place]., [address] Blood 06/18/2024 10:1 2 AM ACCIDENT INVESTIGATOR 06/18/2024 1:23 PM ACCIDENT INVESTIGATOR us Jose Armando Meadows MD LAB BLOOD ORDERABLES Stephany l Result [facility] ([place]) 1 [facility] Department [place] [address] * (ABNORMAL) Lipid panel (06/18/2024 10:12 AM ACCIDENT INVESTIGATOR) Cholesterol 88 30 - 199 mg/dL Comment: [...] last revised on 2017. Testing performed by: [facility], [address] [place] [address]., [address] Triglycerides 72 <=149 mg/dL DA[facility] ([place]) [...] last revised on 2017. Testing performed by: [address] [address] HDL 38(L) >=40 mg/dL DAWN Do ([place]) [...] last revised on 2017. Testing performed by: [facility], [address] [place] [address]., [address] LDL, calculated 34 <=129 mg/dL DA[facility] CONTRERAS [...] last revised on 2023. Testing performed by: [facility], [address] [place] [address]., [address] Non-HDL Cholesterol 50 mg/dL [facility] ([place]) [...] last revised on 2017. Testing performed by: [address] [address] Chol/HDL ratio 2 [facility] ([facility]) Comment:Testing performed by : [address], [address] Blood 06/18/2024 10:1 2 AM ACCIDENT INVESTIGATOR 06/18/2024 1:23 PM ACCIDENT INVESTIGATOR us Jose Armando Meadows MD LAB BLOOD ORDERABLES Stephany ritter Result [facility] ([facility]) 1 [facility] Department [place] [address] * (ABNORMAL) Comprehensive metabolic panel (06/18/2024 10:12 AM ACCIDENT INVESTIGATOR) Sodium 136 135 - 145 mmol/L Comment:Testing performed by : [address], [address] Potassium, pl 4.8 3.3 - 4.9 mmol/L [facility] ([facility]) Comment:Testing performed by : [facility], [address] [place] [address]., [address] Chloride 100 97 - 110 mmol/L [facility] ([facility]) Comment:Testing performed by : [address], [address] CO2 25 22 - 32 mmol/L [facility] ([facility]) Comment:Testing performed by : [address], [address] Anion gap 11 2 - 15 mmol/L [facility] ([facility]) Comment:Testing performed by : [address], [address] BUN 18 6 - 25 mg/dL [facility] ([facility]) Comment:Testing performed by : [address], [address] Creatinine 0.93 0.80 - 1.30 mg/dL [facility] ([facility]) Comment:Testing performed by : [address] [address] Glucose 296(H) 70 - 199 mg/dL [facility] ([facility]) Comment: Interpretive Data Fasting glucose [...] was last revised 2022. Testing performed by: [address] [address] Calcium 9.4 8.5 - 10.3 mg/dL [facility] ([facility]) Comment:Testing performed by : [address], [address] Bilirubin, total 0.7 0.1 - 1.2 mg/dL [facility] ([facility]) Comment:Testing performed by : [address], [address] Protein, pl 6.5 6.5 - 8.5 g/dL [facility] ([facility]) Comment:Testing performed by : [address], [address] Albumin 4.3 3.5 - 5.0 g/dL [facility] ([facility]) Comment:Testing performed by : [address], [address] Alk phos 61 40 - 130 Units/L [facility] ([facility]) Comment:Testing performed by : [address], [address] ALT 18 7 - 55 Units/L [facility] ([facility]) Comment:Testing performed by : [address], [address] AST 20 10 - 50 Units/L [facility] ([facility]) Comment:Testing performed by : [address], [address] Blood 06/18/2024 10:1 2 AM ACCIDENT INVESTIGATOR 06/18/2024 1:23 PM ACCIDENT INVESTIGATOR Jose Armando Meadows MD LAB BLOOD ORDERABLES Stephany l Result [facility] [place] 1 [facility] [place] [address] * Diabetic Eye Exam (04/18/2023) us Historical Provider HEALTH MAINTENANCE Final Result * COLONOSCOPY (06/12/2021 7:26 AM ACCIDENT INVESTIGATOR) Anatomical Region Laterality Modality Other Narrative Procedure Note Sumit Fuller MD - 06/12/2021 7:26 AM CST [facility] Patient Name: Ronnie Payne Procedure Date: 06/12/2021 7:26 AM Date of : 1945 Admit Type: Outpatient Age: 75 Gender: Male Attending MD: Sumit Fuller M.D. Room: [facility] ROOM 2 Note Status: Finalized Patient [...] scope was passed under direct vision. TheColonoscope [id number] was introduced through the anus and advanced [...] 7:26 AM Procedure Code(s): --- Professional --- 59064, Colonoscopy, flexible; with biopsy, single or multiple Diagnosis Code(s): --- Professional --- K57.30, Diverticulosis of large intestine without perforation orabscess without bleeding Z80.0, Family history of malignant neoplasm of digestive organs K63.5, Polyp of colon K64.9, Unspecified hemorrhoids Z86.010, Personal history of colonic polyps CPT copyright 2019 [employer]. All rights reserved. The codes documented in this report are preliminary and upon physician coder reviewmay be revised to meet current compliance requirements. Recognized by the [employer] for promoting quality in endoscopy Sumit Fuller MD ENDOSCOPY PROCEDURES Final Re sult from Last 3 Months or Most Recently Relevant to [place] [address] MEDICARE [facility] [place] [address] MEDICARE [employer] MEDICARE SUPPLEMENT Advance Directives For more information, please contact: [phone] * Full Code (Latest Code Status on File) Date Activated Date Inactivated Comments 06/12/2021 8:05 AM 06/12/2021 1:44 PM * Full Code Date Activated Date Inactivated Comments 06/12/2021 8:04 AM 06/12/2021 8:05 AM Care Teams Plastic Eye Technician Relationship Specialty Start Date End Date Jose Armando Meadows MD [address] [place] [address] [facility] - General 08/02/16
== END 2024-07-27 14:41 | disposition home or self-care (01) ==
PROVIDERS: PCP Family Medicine; Visit Provider Urology
DX: N20.1 Calculus of ureter (principal); N20.0 Calculus of kidney
CPT/HCPCS: 74018

== ENCOUNTER 2024-11-03 10:54 | Emergency (ER) | payer MEDICARE, SELFPAY ==
[2024-11-03 10:59] VITALS: BP 135/57; PULSE 67; RESP 18; TEMP 36.4; O2SAT 100
--- OUTSIDE RECORDS SUMMARY | 2024-11-03 11:05 | XMS_ITS | Referral Summary ---
Author Organization [facility] Building B Address [address] [place] [address] Care Team Providers Care Field Operations Supervisor Name Role Phone Jose Armando Meadows MD Primary Care Provider [phone] Encounters Date Type Department Care Team Description 10/19/2024 9:30 AM CDT Office Visit [facility] [address] [place] [address] [address] [place] [address] Dago Clay MD DAPHNEY (obstructive sleep apnea) (Primary Dx); Hypersomnia with sleep apnea; Overweight (BMI 25.0-29.9) 09/22/2024 11:15 AM CDT Office Visit [facility] [address] [address] Jose Armando Meadows MD Prostate cancer screening (Primary Dx); Controlled type 2 diabetes mellitus with hyperglycemia, without long-term current use of insulin (HCC); Hyperlipidemia associated with type 2 diabetes mellitus (HCC); Benign prostatic hyperplasia, unspecified whether lower urinary tract symptoms present 09/21/2024 8:10 AM CDT Lab [facility] [address] [place] [address] Controlled type 2 diabetes mellitus with hyperglycemia, without long-term current use of insulin (HCC) 09/20/2024 Orders Only [facility] [address] [address] Jose Armando Meadows MD Controlled type 2 diabetes mellitus with hyperglycemia, without long-term current use of insulin (HCC) (Primary Dx) from Last 3 Months Allergies Active Allergy Reactions Criticality Noted Date Comments Bacitracin Nausea & Vomiting Low 12/10/2019 Bacitracin-Polymyxin B Hives Medium 06/18/2023 Iodinated Contrast Media Other (See comments),Anaphylaxis High 12/27/2015 Reaction: FLUSHING, Metrizamide Anaphylaxis High 12/27/2015 Neomycin Other (See comments) Low 12/10/2019 Vjfpovhq-Vhbavklyvq-Hw lymyxin Other (See comments) Reaction: NON-HEALING OF WOUND, REDNESS OF SKIN, Polymyxin B Other (See comments) Low 12/10/2019 Medications saw palmetto 160 mg capsule Take as directed 0 0 01/14/20 07 Active cinnamon bark (CINNAMON) 500 mg capsule Take as directed 0 0 01/14/20 07 Active ascorbic acid, vitamin C, 1,000 mg tablet,chewable Take as directed 0 0 01/14/20 07 Active omega-3 fatty acids (FISH OIL CONCENTRATE) 1,000 mg capsule Take one by mouth one time per day 0 0 03/06/20 09 Active cyanocobalamin, vitamin B-12, 1,000 mcg tablet extended release Take by mouth. Active flaxseed 1,000 mg capsule Take by mouth. Active multivitamin tablet tabletIndications: Vitamin Deficiency Prevention Take by mouth. Active acidophilus-pectin , citrus 100 million cell-10 mg capsuleIndications :Type 2 diabetes mellitus without complication, without long-term current use of insulin (HCC) Take 2 tablets by mouth daily. Active aspirin 81 mg enteric coated tablet Take 1 tablet (81 mg total) by mouth daily 30 tablet 11 01/19/20 20 Active blood glucose diagnostic stripIndications:T ype 2 diabetes mellitus with hyperlipidemia (HCC) Use to check blood glucose up to four times daily. Dx: E11.69 Non insulin Dependent One Touch Ultra 360 each 2 11/02/19 21 Active blood glucose diagnostic (FreeStyle Test) strip Use to check blood glucose up to daily Dx: E11.69 Non Insulin Dependent One Touch Ultra 100 each 2 11/29/19 21 Active nystatin cream APPLY TO RASH IN GROIN TWICE DAILY FOR 6 WEEKS OR UNTIL RESOLVED 09/09/19 24 Active tamsulosin (FLOMAX) 0.4 mg extended release capsule TAKE 1 CAPSULE(0.4 MG) BY MOUTH DAILY 100 capsule 12/24/20 24 Active empagliflozin (JARDIANCE) 25 mg tablet Take 1 tablet (25 mg total) by mouth daily 90 tablet 3 06/22/19 25 Active metFORMIN (GLUCOPHAGE) 500 mg tablet TAKE 2 TABLETS(1000 MG) BY MOUTH TWICE DAILY WITH MEALS 360 tablet 1 09/09/19 25 Active rosuvastatin (CRESTOR) 20 mg tablet TAKE 1 TABLET(20 MG) BY MOUTH DAILY 100 tablet 1 09/12/19 25 Active garlic extract 600 mg tabletIndications: Type 2 diabetes mellitus without complication, without long-term current use of insulin (HCC) Take 1,200 mg by mouth 2 (two) times a day. 025 Discontin ued(Patie nt Reported) inulin (FIBER GUMMIES ORAL) Take by mouth 025 Discontin ued(Patie nt Reported) mupirocin (BACTROBAN) 2 % ointmentIndication s:Superficial laceration Apply topically 3 (three) times a day 22 g 02/18/20 20 025 Discontin ued(Patie nt Reported) glimepiride (AMARYL) 4 mg tablet TAKE 2 TABLETS(8 MG) BY MOUTH DAILY BEFORE BREAKFAST 180 tablet 3 07/14/19 24 025 Discontin ued(Patie nt Reported) difluprednate (DUREZOL) 0.05 % drops INSTILL 1 DROP IN LEFT EYE THREE TIMES DAILY DIRECTED 08/08/19 24 025 Discontin ued(Alter celio therapy) Active Problems Problem Noted Date Diagnosed Date Controlled type 2 diabetes deniec dent with hyperglycemia, without long-term current use of insulin 09/22/2024 Assessment & Plan (09/22/2024 12:02 PM CDT): Reviewed glycemic control. Improved blood sugar control. No hypoglycemia and will montior respnose. Prostate cancer screening 09/22/2024 DAPHNEY on CPAP 06/22/2024 Assessment & Plan (06/22/2024 8:40 AM FERMENTATION MANAGER): Continues on nightly CPAP and will follow response. Daytime increased energy, decreased fatigue. Benign prostatic hyperplasia 06/22/2024 Assessment & Plan (09/22/2024 12:01 PM CDT): Continues on tamsulosin. No hematuria. Assessment & Plan (06/22/2024 8:40 AM FERMENTATION MANAGER): COntinues on tamsulosin and saw palmetto and will follow response. Type 2 diabetes mellitus wit h hyperglycemia, without long-term current use of insulin 04/01/2023 Assessment & Plan (04/01/2023 3:08 PM FERMENTATION MANAGER): Hba1c was Lab Results Component Value Date [...] 09/05/2022 Assessment & Plan (06/22/2024 8:39 AM FERMENTATION MANAGER): Needs improved control. Continue metformin and glimepiride. 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 Continues on antiplatelet and statin [...] CMP NT [facility] Assessment & Plan (09/22/2024 12:01 PM CDT): Stable on rosuvastatin and will monitor response. Continues to monitor ffor myalgias. Assessment & Plan (06/22/2024 8:40 AM FERMENTATION MANAGER): Stable and will follow response. Assessment & Plan (04/01/2023 3:07 PM FERMENTATION MANAGER): Chronic, well controlled Continue Atorvastatin Assessment & [...] points, staff should administer the PHQ-9) 0 09/22/2024 Sex and Gender Information Value Date Recorded Sex Assigned at Not on file Legal Sex Male 6:12 PM FERMENTATION MANAGER Gender Identity Not on file Sexual Orientation Not on file Last Filed Vital Signs Vital Sign Reading Time Taken Comments Blood Pressure 127/72 10/19/2024 9:36 AM CDT Pulse 61 10/19/2024 9:36 AM CDT Temperature 36.4 C (97.6 F) 09/22/2024 11:04 AM CDT Respiratory Rate 18 10/19/2024 9:36 AM CDT Oxygen Saturation 97% 10/19/2024 9:36 AM CDT Inhaled Oxygen Concentration - - Weight 84.8 kg (187 lb) 10/19/2024 9:36 AM CDT Height 177.8 cm (5' 10) 10/19/2024 9:36 AM CDT Body Mass Index 26.83 10/19/2024 9:36 AM CDT Plan of Treatment Not on file Procedures Procedure Name Priority Date/Time Associated Diagnosis Comments EGFR Routine 09/21/2024 3:21 PM CDT Controlled type 2 diabetes mellitus with hyperglycemia, without long-term current use of insulin (HCC) COMPREHENSIVE METABOLIC PANEL Routine 09/21/2024 3:21 PM CDT Controlled type 2 diabetes mellitus with hyperglycemia, without long-term current use of insulin (HCC) DIFFERENTIAL AUTO Routine 09/21/2024 8:0 7 AM CDT Controlled type 2 diabetes mellitus with hyperglycemia, without long-term current use of insulin (HCC) CBC WITH AUTO DIFFERENTIAL Routine 09/21/2024 8:07 AM CDT Controlled type 2 diabetes mellitus with hyperglycemia, without long-term current use of insulin (HCC) HEMOGLOBIN A1C Routine 09/21/2024 8:07 AM CDT Controlled type 2 diabetes mellitus with hyperglycemia, without long-term current use of insulin (HCC) LIPID PANEL Routine 06/18/2024 10:12 AM FERMENTATION MANAGER Controlled type 2 diabetes mellitus without complication, without long-term current use of insulin (HCC) ALBUMIN CREATININE RATIO, URINE Routine 06/18/2024 10:12 AM FERMENTATION MANAGER Controlled type 2 diabetes mellitus without complication, without long-term current use of insulin (HCC) DIABETIC EYE EXAM Routine 04/18/2023 COLONOSCOPY 06/12/2021 7:26 AM FERMENTATION MANAGER from Last 3 Months or Most Recently Relevant to Health Maintenance Results * eGFR (09/21/2024 3:21 PM CDT) eGFR 86 >=60 mL/min/1. 73 m2 Comment: Interpretive Data [...] was last reviewed 2021. Testing performed by: [address] [address] Blood 09/21/2024 3:21 PM CDT 09/21/2024 3:21 PM CDT Jose Armando Meadows MD LAB BLOOD ORDERABLES Stephany ritter Result [facility] [place] [address] * (ABNORMAL) Comprehensive metabolic panel (09/21/2024 3:21 PM CDT) Sodium 142 135 - 145 mmol/L Comment:Testing performed by : [address], [address] Potassium, pl 4.9 3.3 - 4.9 mmol/L [facility] ([place]) Comment:Testing performed by : [address], [address] Chloride 107 97 - 110 mmol/L [facility] ([place]) Comment:Testing performed by : [address], [address] CO2 25 22 - 32 mmol/L [facility] ([place]) Comment:Testing performed by : [address], [address] Anion gap 10 2 - 15 mmol/L [facility] ([place]) Comment:Testing performed by : [address], [address] BUN 22 6 - 25 mg/dL [facility] ([place]) Comment:Testing performed by : [address], [address] Creatinine 0.92 0.80 - 1.30 mg/dL [facility] ([place]) Comment:Testing performed by : [address], [address] Glucose 165 70 - 199 mg/dL [facility] ([place]) [...] was last revised 2022. Testing performed by: [facility], [address] [place] [address]., [address] Calcium 9.3 8.5 - 10.3 mg/dL [facility] ([place]) Comment:Testing performed by : [address], [address] Bilirubin, total 0.6 0.1 - 1.2 mg/dL [facility] ([place]) Comment:Testing performed by : [address], [address] Protein, pl 6.3(L) 6.5 - 8.5 g/dL [facility] ([place]) Comment:Testing performed by : [address], [address] Albumin 4.3 3.5 - 5.0 g/dL [facility] ([place]) Comment:Testing performed by : [address], [address] Alk phos 62 40 - 130 Units/L [facility] ([place]) Comment:Testing performed by : [address], [address] ALT 27 7 - 55 Units/L [facility] ([place]) Comment:Testing performed by : [address], [address] AST 32 10 - 50 Units/L [facility] ([place]) Comment:Testing performed by : [address], [address] Blood 09/21/2024 3:21 PM CDT 09/21/2024 3:21 PM CDT us Jose Armando Meadows MD LAB BLOOD ORDERABLES Stephany l Result [facility] ([place] [place] [address] * Differential, auto (09/21/2024 8:07 AM CDT) Neutrophil abs 1.60 1.50 - 6.50 K/cumm Comment:Testing performed by : [facility], [address] [place] [address], [address] Imm gran abs 0.03 0.00 - 0.10 K/cumm [facility] ([place]) Comment:Testing performed by : [address], [address] Lymphocyte abs 1.22 0.80 - 3.30 K/cumm [facility] ([place]) Comment:Testing performed by : [address], [address] Monocyte abs 0.38 0.20 - 0.80 K/cumm [facility] ([place]) Comment:Testing performed by : [facility], [address] [place] [address]., [address] Eosinophil abs 0.22 0.00 - 0.50 K/cumm [facility] ([place]) Comment:Testing performed by : [facility], [address] [place] [address]., [address] Basophil abs 0.02 0.00 - 0.10 K/cumm [facility] ([place]) Comment:Testing performed by : [address], [address] Neutrophil pct 46.0 % [facility] ([place]) Comment: Interpretive Data Percent cell count reference ranges are not reported, since discordance with absolute values may lead to misinterpretation of CBC data. Current Interpretive Data was last revised on 2017. Testing performed by: [address], [address] Imm gran pct 0.9 % [facility] ([place]) Comment: Interpretive Data Percent cell count reference ranges are not reported, since discordance with absolute values may lead to misinterpretation of CBC data. Current Interpretive Data was last revised on 2017. Testing performed by: [facility], [address] [place] [address]., [address] Lymphocyte pct 35.2 % [facility] ([place] Comment: Interpretive Data Percent cell count reference ranges are not reported, since discordance with absolute values may lead to misinterpretation of CBC data. Current Interpretive Data was last revised on 2017. Testing performed by: [facility], [address] [place] [address]., [address] Monocyte pct 11.0 % [facility] ([place]) Comment: Interpretive Data Percent cell count reference ranges are not reported, since discordance with absolute values may lead to misinterpretation of CBC data. Current Interpretive Data was last revised on 2017. Testing performed by: [facility], [address] [place] [address]., [address] Eosinophil pct 6.3 % [facility] ([place] Comment: Interpretive Data Percent cell count reference ranges are not reported, since discordance with absolute values may lead to misinterpretation of CBC data. Current Interpretive Data was last revised on 2017. Testing performed by: [facility], [address] [place] [address]., [address] Basophil pct 0.6 % [facility] ([place]) Comment: Interpretive Data Percent cell count reference ranges are not reported, since discordance with absolute values may lead to misinterpretation of CBC data. Current Interpretive Data was last revised on 2017. Testing performed by: [address] [address] Blood 09/21/2024 8:07 AM CDT 09/21/2024 2:00 PM CDT us Jose Armando Meadows MD LAB BLOOD ORDERABLES Stephany ritter Result [facility] ([place]) 1 [facility] [place] [address] * (ABNORMAL) CBC with auto differential (09/21/2024 8:07 AM CDT) WBC 3.47(L) 3.80 - 9.90 K/cumm Comment:Testing performed by : [address], [address] Hgb 15.1 13.0 - 17.5 g/dL [facility] ([place]) Comment:Testing performed by : [address], [address] Hct 46.0 38.9 - 50.3 % [facility] ([place]) Comment:Testing performed by : [address], [address] Plt 194 150 - 400 K/cumm [facility] ([place]) Comment:Testing performed by : [address], [address] MPV 10.1 9.1 - 12.3 fL [facility] ([place]) Comment:Testing performed by : [address], [address] RBC 4.57 4.30 - 5.80 M/cumm [facility] ([place]) Comment:Testing performed by : [address], [address] MCV 100.7(H) 81.3 - 96.4 fL [facility] ([place]) Comment:Testing performed by : [address], [address] MCH 33.0 27.1 - 33.3 pg [facility] ([place]) Comment:Testing performed by : [address], [address] MCHC 32.8 32.3 - 35.7 g/dL [facility] ([place]) Comment:Testing performed by : [address], [address] RDW CV 13.2 11.1 - 14.9 % [facility] ([place] Comment:Testing performed by : [address], [address] RDW SD 49.1(H) 35.7 - 48.1 fL [facility] ([place]) Comment:Testing performed by : [address], [address] NRBC abs 0.00 0.00 - 0.01 K/cumm [facility] ([place]) Comment:Testing performed by : [address] [address] Blood 09/21/2024 8:07 AM CDT 09/21/2024 2:00 PM CDT Jose Armando Meadows MD LAB BLOOD ORDERABLES Stephany l Result Performing Organization Address [facility] Co de Phone Number [facility] [address] [place] [address] * (ABNORMAL) Hemoglobin A1c (09/21/2024 8:07 AM CDT) Hgb A1C 7.6(H) 4.0 - 5.6 % Comment:Testing performed by : [address], [address] Estimated Average Glucose 171 mg/dL [facility] ([place]) Comment: The ADA recommends reporting an estimated Average Glucose (eAG) with all Hemoglobin A1c results using the equation derived from a study of 507 normal and diabetic adults. Minority populations were underrepresented and children were not included. (Diabetes Care 31:1813-3448, 2008). The eAG is not equivalent to a fasting glucose. Testing performed by: [address], [address] Blood 09/21/2024 8:07 AM CDT 09/21/2024 2:00 PM CDT Jose Armando Meadows MD LAB BLOOD ORDERABLES Stephany l Result Performing Organization Address [facility] Co de Phone Number [facility] ([facility] [address] [place] [address] * (ABNORMAL) Albumin Creatinine Ratio, Urine (06/18/2024 10:12 AM FERMENTATION MANAGER) Pathologist [facility] Albumin Ur 30.9 mg/L Comment: Interpretive Data No reference range established. Current interpretive data was last revised 2018. Testing performed by: [address], [address] Creatinine Ur 84.1 mg/dL [facility] ([place]) Comment: Interpretive Data No reference range established. Current interpretive data was last revised 2018. Testing performed by: [facility], [address] [place] [address]., [address] Albumin Creatinine Ratio, Ur 37(H) 1 - 29 mg/g [facility] ([place]) Comment:Testing performed by : [facility], [address] [place] [address]., [address] Urine 06/18/2024 10:1 2 AM FERMENTATION MANAGER 06/18/2024 1:23 PM FERMENTATION MANAGER us Jose Armando Meadows MD LAB URINE ORDERABLES Stephany ritter Result [facility] ([place]) 1 [facility] [place] [address] * (ABNORMAL) Lipid panel (06/18/2024 10:12 AM FERMENTATION MANAGER) Cholesterol 88 30 - 199 mg/dL Comment: [...] last revised on 2017. Testing performed by: [facility], [address] [place] [address]., [address] Triglycerides 72 <=149 mg/dL [facility] ([place]) [...] last revised on 2017. Testing performed by: [facility], [address] [place] [address]., [address] HDL 38(L) >=40 mg/dL [facility] ([place]) [...] last revised on 2017. Testing performed by: [address] [address] LDL, calculated 34 <=129 mg/dL [facility] [...] 3. Gordo Cruz et al. CORINA Cardiol. 2020 September 02;5(5):540-548. doi: 10.1001/jamacardio.2020.0013 Current Interpretive Data was last revised on 2023. Testing performed by: [address] [address] Non-HDL Cholesterol 50 mg/dL [facility] ([place]) [...] last revised on 2017. Testing performed by: [facility], [address] [place] [address]., [address] Chol/HDL ratio 2 CL [facility] ([place]) Comment:Testing performed by : [facility], [address] [place] [address]., [address] Blood 06/18/2024 10:1 2 AM FERMENTATION MANAGER 06/18/2024 1:23 PM FERMENTATION MANAGER Jose Armando Meadows MD LAB BLOOD ORDERABLES Stephany l Result [facility] ([place]) [facility] [place] [address] * Diabetic Eye Exam (04/18/2023) Historical Provider HEALTH MAINTENANCE Final Result * COLONOSCOPY (06/12/2021 7:26 AM FERMENTATION MANAGER) Anatomical Region Laterality Modality Other Narrative Procedure Note Sumit Fuller MD - 06/12/2021 7:26 AM CST [facility] Patient Name: Shea Payne Procedure Date: 06/12/2021 7:26 AM Date of : 1945 Admit Type: Outpatient Age: 75 Gender: Male Attending MD: Sumit Fuller M.D. Room: [facility]COPY [facility] 2 Note Status: Finalized Patient [...] scope was passed under direct vision. TheColonoscope [id number] was introduced through the anus and advanced [...] 7:26 AM Procedure Code(s): --- Professional --- 88366, Colonoscopy, flexible; with biopsy, single or multiple Diagnosis Code(s): --- Professional --- K57.30, Diverticulosis of large intestine without perforation orabscess without bleeding Z80.0, Family history of malignant neoplasm of digestive organs K63.5, Polyp of colon K64.9, Unspecified hemorrhoids Z86.010, Personal history of colonic polyps CPT copyright 2019 [employer]. All rights reserved. The codes documented in this report are preliminary and upon adult school teacher reviewmay be revised to meet current compliance requirements. Recognized by the [employer] for promoting quality in endoscopy Sumit Fuller MD ENDOSCOPY PROCEDURES Final Re sult from Last 3 Months or Most Recently Relevant to [place] [address] [place] [address] MEDICARE [facility] [place] [address] MEDICARE [facility] Advance Directives For more information, please contact: [phone] * Full Code (Latest Code Status on File) Date Activated Date Inactivated Comments 06/12/2021 8:05 AM 06/12/2021 1:44 PM * Full Code Date Activated Date Inactivated Comments 06/12/2021 8:04 AM 06/12/2021 8:05 AM Care Teams Field Operations Supervisor Relationship Specialty Start Date End Date Jose Armando Meadows MD [address] [place] [address] PCP - General 08/02/16
--- OUTSIDE RECORDS SUMMARY | 2024-11-03 11:05 | XMS_ITS | Clinical Summary ---
Author Organization [facility] Address [address], [facility] [address] [place] [address] Phone Care Team Providers Care Joist Setter Name Role Phone Jose Armando Meadows MD Primary Care Provider [phone] Allergies Active Allergy Reactions Criticality Noted Date [...] 1:00 PM CDT Height 177.8 cm (5' 10) 12/27/2015 1:00 PM CDT Body Mass Index [...] 2024 SARS-COV-2 Immunization ( season) 2024 Colonoscopy Discontinued 01/03/2016 Colorectal Cancer Screening Discontinued Retired - Colonoscopy High Risk Discontinued 6 Cologuard Discontinued Hepatitis B Immunization Aged Out No longer eligible based on patient's age to complete this topic Immunochemical Fecal Occult Blood Discontinued Meningococcal Immunization (ACWY) Aged Out No longer eligible based on patient's age to complete this topic Rotavirus Immunization Aged Out No lo nger eligible based on patient's age to complete this [place] [address] MEDICARE [employer] Care Teams Joist Setter Relationship Specialty Start Date End Date [place] [address] PCP - General Internal Medicine 01/03/16
--- OUTSIDE RECORDS SUMMARY | 2024-11-03 11:05 | XMS_ITS | Continuity of Care Document ---
Author Organization [facility] Address [address] [place] [address] [address] [place] [address] Phone Care Team Providers Care Brush Filler Hand Name Role Phone Rd Cedillo MD, FACS Unavailable Unavailab le Allergies, Adverse Reactions, Alerts Substance Reaction Status Criticality IODINE Active No Information polymyxin B Active No Information NEOMYCIN SULFATE Active No Informat ion BACITRACIN ZINC Active No Informati on bacitracin Active No Information DYE Active No Information Medications Medication Instructions Dosage Effective Dates (start - stop) Status Comments metformin 500 mg tablet take one tablet daily - Active tamsulosin 0.4 mg capsule take 1 capsule by oral route every day 1/2 hour following the same meal each day 0.4 MG - Active rosuvastatin 20 mg tablet take 1 tablet by oral route every day 20 MG - Active glimepiride 4 mg tablet take 1 tablet by oral route every day 4 MG - Active Procedures Procedure Date No Charge Refraction Fundus Photography W/ Report Corneal Pachymetry Eye Exam & Treatment Corneal Pachymetry Eye Exam & Treatment Refraction Eye Exam, New Patient Advance Directives Directive Yes / No Effective Date File Name No Information Encounters Encounter Description Practice Location Reason(s) For Visit Diagnoses Date Provider Providers Copied on Encounter [facility], [address] [place], [place] [address], [place], [place], [id number], [place] tel:[phone] SEC Aury Contreras No Information 1 Mamadou Sultana. [address], [address], [place], [place], [id number], [place]. tel:[phone] [facility], [address], [place], [place], [id number], [place] tel:[phone] SEC [facility] Professional Diabetic eye exam (chief complaint) Age-related nuclear cataract, bilateralType 2 diabetes mellitus without complicationsO ptic cupping of both eyesCorneal scar, right eyeEndothelial corneal dystrophy, bilateral Oct-2 0-202 0 Gustavo Murdock. [address], [address], [place], [place], [address], [place]. tel:[phone] Referring Provider: Christiano Chi OD, [facility] [address] [facility], [place], [address]. tel:[phone] [facility], [address] [place] [address] [address], [place], [place], [id number], [place] [phone] SEC [facility] Professional No Information Sep-2 9-202 0 Gustavo Murdock. [address], [address], [place], [place], [address], [place]. tel:[phone] [facility], [address], [place], [place], [address], [place] [phone] SEC [facility] Professional Diabetic eye exam (chief complaint) Age-related nuclear cataract, bilateralType 2 diabetes mellitus without complicationsD rusen (degenerative) of macula, right eyeEndothelial corneal dystrophyOptic cupping of both eyesCorneal scar, right eye Oct-1 5-201 9 Gustavo Murdock. [address], [facility] [address], [place], [place], [id number], [place]. tel:[phone] Referring Provider: Mathieu Cruz, [address], [place], [address] . tel:[phone] [facility], [address] [place] [address] [address], [place], [place], [address], [place] tel:[phone] SEC [place] Professional Complete Exam (chief complaint) Endothelial corneal dystrophyAge-r elated nuclear cataract, bilateralCorne al scar, right eyePinguecula of both eyesOptic cupping of both eyesType 2 diabetes mellitus without complications 8 Gustavo Murdock. [address] [facility], [address], [place], [place], [address], [place]. tel:[phone] Family History Family Member Type Diagnosis Age At Onset No Information Payers Payer name Insurance type Covered democrat ID Authoriza tion(s) Medicare MELLISSA LEON [id number] [employer] Mdcr Supp CI [id number] Social History Type Description Quantity Date Captured Comments Alcohol Use Details Unknown Caffeine Use Details Unknown Tobacco Use Status No Information Smoking Status No Information Sex Male Chief Complaint And Reason For Visit No Information Reason For Referral Reason For Referral No Information Plan Of Treatment Date Type Action Status Patient Education Cataracts: Care Instruc tions completed Patient Education Cataracts: Care Instruc tions completed History Of Present Illness Encounter Date Complaint History Of Prese nt Illness Diabetic eye exam The 74 year ol d male presents for evaluation of Diabetic eye exam in the right eye and left eye. Hx of Corneal Scar OD, Pinguecula OU, Optic cupping OU, Fuch's OU, and mild Cataracts OU. Patient states he has trouble seeing the golf ball. Patient states he will be seeing [facility] optical for a glasses change. Patient is a Type 2 diab x 13 years, NOT on Insulin, doesn't check BS, a1c 7.2, and PCP treats his diab. Patient does not want to consider cat sx at this time. Diabetic eye exam The 73 year ol d male presents for evaluation of Diabetic eye exam in the right eye and left eye. Hx of Corneal Scar OD, Pinguicula OU, Optic Cupping OU, and FUCH's OU. Patient denies any problems or changes with eyes. Patient is a Type 2 diab x 12 years, NOT on Insulin, doesn't check BS, a1c 6.9, and PCP treats diab. Patient goes to [facility] for glasses. Complete Exam The 72 year old male presents for evaluation of Complete Exam in the right eye and left eye. Pt denies any ocular Sx, injuries, or past Dx, OU. Pt is NIDDM II x 13yrs. PCP follows DM. Pt reports he doesn't check his BS and A1C was 6.2 in July. Pt reports he has a hard time following the golf ball off in the distance and noticed he squints some, OU, x this spring, without gls. Pt reports he sees well for the most part w/OTC readers, but admits some trouble with real tiny things. Pt reports he doesn't use any gtts and no pain, irritation or discomfort today, OU. Functional Status Date Functional Assessmen t No Information Instructions Date Instruction Additional Shannonr мария Impression/Plan Impression/Plan Impression/Plan Assessments Type Assessment Date No Information Patient Care Teams Name Effective Dates (start - stop) Status Members No Information
--- OUTSIDE RECORDS SUMMARY | 2024-11-03 11:05 | XMS_ITS | Clinical Summary ---
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 ATTENDANT Gender Identity Not on file Sexual Orientation Not on file Last Filed Vital Signs Vital Sign Reading Time Taken Comments Blood Pressure 134/62 06/30/2023 9:45 AM GAME ATTENDANT Pulse 65 06/30/2023 6:45 AM GAME ATTENDANT Temperature 36.1 C (97 F) 06/30/2023 6:45 AM GAME ATTENDANT Respiratory Rate 16 06/30/2023 9:45 AM GAME ATTENDANT Oxygen Saturation 97% 06/30/2023 9:45 AM GAME ATTENDANT Inhaled Oxygen Concentration - - Weight 95.3 kg (210 lb) 06/18/2023 2:33 PM GAME ATTENDANT Height 177.8 cm (5' 10) 06/18/2023 2:33 PM GAME ATTENDANT Body Mass Index 30.13 06/18/2023 2:33 PM GAME ATTENDANT Plan of Treatment Health Maintenance Due Date Last Done Comments Hepatitis C 08/18/1963 Annual Medicare Wellness Visit 08/18/2012 RSV Immunization or 60+ Years (1 - 1-dose 75+ series) 08/18/2022 COVID-19 Vaccine ( season) 2024 02/18/2022, 02/20/2021, 07/21/2020, Additional history exists DTaP, Tdap and Td Vaccines (2 - Td or Tdap) 06/16/2028 06/16/2018 Pneumococcal Vaccine: 50+ Years Completed 04/09/2018, 02/08/2015 Zoster Vaccines Completed [...] this topic Medical Devices Implanted Type Area Bank Appraiser Device Identifier Shelf Expiration Date Model / Serial / Lot Tecnis Iol Implanted:Qty: 1 on 06/30/2023 by River Solorio MD at [facility] Left: Eye [employer] 12/09/2025 [id number] / / [id number] Corneal Graft Implanted:Qty: 1 on 06/30/2023 by River Solorio MD at [facility] Left: Eye 10/31/2024 [id number] / / [id number] Insurance [facility] MEDICARE Care Teams Rcp Relationship Specialty Start Date End Date Jose Armando Meadows MD [address] [place] [address] PCP - General 06/29/23
--- OUTSIDE RECORDS SUMMARY | 2024-11-03 11:05 | XMS_ITS | Clinical Summary ---
Author Organization [facility] B Address [address] [place] [address] Care Team Providers Care Resident Program Specialist Name Role Phone Jose Armando Meadows MD Primary Care Provider [phone] Allergies Active Allergy Reactions Criticality Noted Date Comments Bacitracin Nausea & Vomiting Low 12/10/2019 Bacitracin-Polymyxin B Hives Medium 06/18/2023 Iodinated Contrast Media Other (See comments),Anaphylaxis High 12/27/2015 Reaction: FLUSHING, Metrizamide Anaphylaxis High 12/27/2015 Neomycin Other (See comments) Low 12/10/2019 Jwmjhsgg-Vwefzezljh-Yx lymyxin Other (See comments) Reaction: NON-HEALING OF [...] complication, without long-term current use of insulin ([facility]) Take 2 tablets by mouth daily. Active aspirin 81 mg enteric coated tablet Take 1 tablet (81 mg total) by mouth daily 30 tablet 11 01/19/20 20 Active blood glucose diagnostic stripIndications:T ype 2 diabetes mellitus with hyperlipidemia ([facility]) Use to check blood glucose up to [...] CAPSULE(0.4 MG) BY MOUTH DAILY 100 capsule 04/27/20 24 Active empagliflozin (JARDIANCE) 25 mg tablet [...] complication, without long-term current use of insulin ([facility]) Take 1,200 mg by mouth 2 (two) [...] Date Diagnosed Date Controlled type 2 diabetes m jailene with hyperglycemia, without long-term current use of insulin 09/22/2024 Assessment & Plan (09/22/2024 12:02 PM CDT): Reviewed glycemic control. Improved blood sugar control. No hypoglycemia and will montior respnose. Prostate cancer screening 09/22/2024 DAPHNEY on CPAP 06/22/2024 Assessment & Plan (06/22/2024 8:40 AM RESOURCE CONSERVATIONIST): Continues on nightly CPAP and will follow response. Daytime increased energy, decreased fatigue. Benign prostatic hyperplasia 06/22/2024 Assessment & Plan (09/22/2024 12:01 PM CDT): Continues on tamsulosin. No hematuria. Assessment & Plan (06/22/2024 8:40 AM RESOURCE CONSERVATIONIST): COntinues on tamsulosin and saw mindy and will follow response. Type 2 diabetes mellitus wit h hyperglycemia, without long-term current use of insulin 04/01/2023 Assessment & Plan (04/01/2023 3:08 PM RESOURCE CONSERVATIONIST): Hba1c was Lab Results Component Value Date [...] 09/05/2022 Assessment & Plan (06/22/2024 8:39 AM RESOURCE CONSERVATIONIST): Needs improved control. Continue metformin and glimepiride. [...] (02/20/2021): Added automatically from request for surgery [id number] Personal history of colonic polyps 02/20/2021 Overview (02/20/2021): Added automatically from request for surgery [id number] Encounter for screening colonoscopy 02/20/2021 Overview (02/20/2021): Added automatically from request for surgery [id number] Coronary artery disease of n ative artery of [place] heart with stable angina pectoris 01/19/2020 Assessment & Plan (06/22/2024 8:39 AM RESOURCE CONSERVATIONIST): Secondary prevnetion. Continues on antiplatelet and statin [...] myalgias. Assessment & Plan (06/22/2024 8:40 AM RESOURCE CONSERVATIONIST): Stable and will follow response. Assessment & Plan (04/01/2023 3:07 PM RESOURCE CONSERVATIONIST): Chronic, well controlled Continue Atorvastatin Assessment & [...] Description 10/19/2024 9:30 AM CDT Office [place] [facility] [address] [place] [address] [address], [place] [address] Dago Clay MD DAPHNEY (obstructive sleep apnea) (Primary Dx); Hypersomnia with sleep apnea; Overweight (BMI 25.0-29.9) 09/22/2024 11:15 AM CDT Office Visit [facility] [address] [place] [address] Jose Armando Meadows MD Prostate cancer screening (Primary Dx); Controlled type 2 diabetes mellitus with hyperglycemia, without long-term current use of insulin (HCC); Hyperlipidemia associated with type 2 diabetes mellitus (HCC); Benign prostatic hyperplasia, unspecified whether lower urinary tract symptoms present 09/21/2024 8:10 AM CDT Lab [facility] [address] [place] [address] Controlled type 2 diabetes mellitus with hyperglycemia, without long-term current use of insulin (HCC) 09/20/2024 Orders Only [facility] [address] [place] [id number] Jose Armando Meadows MD Controlled type 2 diabetes mellitus with hyperglycemia, without long-term current use of insulin (HCC) (Primary Dx) from Last 3 Months Immunizations Immunization Administration [...] mellitus (HCC) diabetes mellitus Calculus of kidney 2004 Nephrolithias is Family History Medical History Relation [...] on file Legal Sex Male 6:12 PM RESOURCE CONSERVATIONIST Gender Identity Not on file Sexual Orientation [...] 10/19/2024 9:36 AM CDT Plan of Treatment Health Maintenance Due Date Last Done Comments Hepatitis C Screening 1945 Hepatitis B Screening 08/18/1963 Zoster Vaccine (2 of 3) 07/13/2015 05/18/2015 Foot Exam 09/06/2023 09/05/2022, 11/02, 04/11/2020, Additional history exists Covid-19 Vaccine (4 - 2023-2 5 season) 2024 02/20/2021, 07/21/2020, 06/29/2020 Dilated Eye Exam 04/18/2024 04/18/2023, , 01/20/2018 Well Visit 65+ 12/22/2024 12/23/2023, 12/03, 11/20/2021, Additional history exists Hemoglobin A1C 03/24/2025 09/21/2024, 06/05, 12/18/2023, Additional history exists Albumin Creatinine Ratio, Urine 06/18/2025 06/18/2024, 06/17/2023, 05/22/2022, Additional history exists Lipid Panel 06/18/2025 06/18/2024, 12/03, 06/17/2023, Additional history exists eGFR 09/21/2025 09/21/2024, 06/05, 12/18/2023, Additional history exists Depression Screening 09/22/2025 09/22/2024, 06/22/2024, 12/23/2023, Additional history exists Fall Risk Assessment 09/22/2025 09/22/2024, 06/22/2024, 12/23/2023, Additional history exists DTaP/Tdap/Td Vaccine (3 - [...] (HCC) LIPID PANEL Routine 06/18/2024 10:12 AM RESOURCE CONSERVATIONIST Controlled type 2 diabetes mellitus without complication, without long-term current use of insulin (HCC) ALBUMIN CREATININE RATIO, URINE Routine 06/18/2024 10:12 AM RESOURCE CONSERVATIONIST Controlled type 2 diabetes mellitus without complication, without long-term current use of insulin (HCC) DIABETIC EYE EXAM Routine 04/18/2023 COLONOSCOPY 06/12/2021 7:26 AM RESOURCE CONSERVATIONIST from Last 3 Months or Most Recently Relevant to Health Maintenance Results * eGFR (09/21/2024 3:21 PM CDT) [facility] eGFR 86 >=60 mL/min/1. 73 m2 Comment: [...] was last reviewed 2021. Testing performed by: [address] [address] Blood 09/21/2024 3:21 PM CDT 09/21/2024 3:21 PM CDT us Jose Armando Meadows MD LAB BLOOD ORDERABLES Stephany ritter Result DAWN CONTRERAS (SENTINEL) 1 [facility] Department [place] [address] * (ABNORMAL) Comprehensive metabolic panel (09/21/2024 3:21 PM CDT) Sodium 142 135 - 145 mmol/L Comment:Testing performed by : [address] [address] Potassium, pl 4.9 3.3 - 4.9 mmol/L DAWN CONTRERAS (VIJI) Comment:Testing performed by : [address] [address] Chloride 107 97 - 110 mmol/L DAWN CONTRERAS (VIJI) Comment:Testing performed by : [address], [address] CO2 25 22 - 32 mmol/L DAWN CONTRERAS (VIJI) Comment:Testing performed by : [address], [address] Anion gap 10 2 - 15 mmol/L [facility] ([facility]JI) Comment:Testing performed by : [address], [address] BUN 22 6 - 25 mg/dL [facility] (VIJI) Comment:Testing performed by : [address], [address] Creatinine 0.92 0.80 - 1.30 mg/dL [facility] (VIJI) Comment:Testing performed by : [address], [address] Glucose 165 70 - 199 mg/dL CERNER [...] was last revised 2022. Testing performed by: [address], [address] Calcium 9.3 8.5 - 10.3 mg/dL [facility] (VIJI) Comment:Testing performed by : [address], [address] Bilirubin, total 0.6 0.1 - 1.2 mg/dL [facility] (VIJI) Comment:Testing performed by : [address] [address] Protein, pl 6.3(L) 6.5 - 8.5 g/dL [facility] (VIJI) Comment:Testing performed by : [address], [address] Albumin 4.3 3.5 - 5.0 g/dL [facility] (VIJI) Comment:Testing performed by : [address], [address] Alk phos 62 40 - 130 Units/L [facility] ([facility]I) Comment:Testing performed by : [facility], [address] [place] [address], [address] ALT 27 7 - 55 Units/L [facility] (VIJI) Comment:Testing performed by : [facility], [address] [place] [address], [address] AST 32 10 - 50 Units/L [facility] (VIJI) Comment:Testing performed by : [facility], [address] [place] [address], [address] Blood 09/21/2024 3:21 PM CDT 09/21/2024 3:21 PM CDT us Jose Armando Meadows MD LAB BLOOD ORDERABLES Stephany ritter Result [facility] ([facility]) 1 [facility] Department [place] [address] * Differential, auto (09/21/2024 8:07 AM CDT) Neutrophil abs 1.60 1.50 - 6.50 K/cumm Comment:Testing performed by : [facility], [address] [place] [address], [address] Imm gran abs 0.03 0.00 - 0.10 K/cumm [facility] ([facility]) Comment:Testing performed by : [facility], [address] [place] [address], [address] Lymphocyte abs 1.22 0.80 - 3.30 K/cumm [facility] ([facility]) Comment:Testing performed by : [facility], [address] [place] [address], [address] Monocyte abs 0.38 0.20 - 0.80 K/cumm [facility] ([facility]) Comment:Testing performed by : [facility], [address] [place] [address], [address] Eosinophil abs 0.22 0.00 - 0.50 K/cumm [facility] ([facility]) Comment:Testing performed by : [address], [address] Basophil abs 0.02 0.00 - 0.10 K/cumm [facility] ([facility]) Comment:Testing performed by : [facility], [address] [place] [address]., [address] Neutrophil pct 46.0 % [facility] (VIJI) Comment: Interpretive Data Percent cell count reference ranges are not reported, since discordance with absolute values may lead to misinterpretation of CBC data. Current Interpretive Data was last revised on 2017. Testing performed by: [facility], [address] [place] [address]., [address] Imm gran pct 0.9 % [facility] ([facility]) Comment: Interpretive Data Percent cell count reference ranges are not reported, since discordance with absolute values may lead to misinterpretation of CBC data. Current Interpretive Data was last revised on 2017. Testing performed by: [facility], [address] [place] [address]., [address] Lymphocyte pct 35.2 % [facility] ([facility]JI) Comment: Interpretive Data Percent cell count reference ranges are not reported, since discordance with absolute values may lead to misinterpretation of CBC data. Current Interpretive Data was last revised on 2017. Testing performed by: [facility], [address] [place] [address]., [address] Monocyte pct 11.0 % [facility] (VIJI) Comment: Interpretive Data Percent cell count reference ranges are not reported, since discordance with absolute values may lead to misinterpretation of CBC data. Current Interpretive Data was last revised on 2017. Testing performed by: [facility], [address] [place] [address]., [address] Eosinophil pct 6.3 % [facility] (VI[facility]) Comment: Interpretive Data Percent cell count reference ranges are not reported, since discordance with absolute values may lead to misinterpretation of CBC data. Current Interpretive Data was last revised on 2017. Testing performed by: [address] [address] Basophil pct 0.6 % [facility] (VI[facility]I) Comment: Interpretive Data Percent cell count reference ranges are not reported, since discordance with absolute values may lead to misinterpretation of CBC data. Current Interpretive Data was last revised on 2017. Testing performed by: [address] [address] Blood 09/21/2024 8:07 AM CDT 09/21/2024 2:00 PM CDT Jose Armando Meadows MD LAB BLOOD ORDERABLES Stephany stone Result [facility] ([facility]) 1 [facility] Department [place] [address] * (ABNORMAL) CBC with auto differential (09/21/2024 8:07 AM CDT) WBC 3.47(L) 3.80 - 9.90 K/cumm Comment:Testing performed by : [facility], [address] [place] [address], [address] Hgb 15.1 13.0 - 17.5 g/dL [facility] ([facility]) Comment:Testing performed by : [address], [address] Hct 46.0 38.9 - 50.3 % [facility] ([facility]) Comment:Testing performed by : [address], [address] Plt 194 150 - 400 K/cumm [facility] ([facility]) Comment:Testing performed by : [address], [address] MPV 10.1 9.1 - 12.3 fL [facility] ([facility]) Comment:Testing performed by : [address], [address] RBC 4.57 4.30 - 5.80 M/cumm [facility] ([facility]) Comment:Testing performed by : [address], [address] MCV 100.7(H) 81.3 - 96.4 fL [facility] ([facility]) Comment:Testing performed by : [address], [address] MCH 33.0 27.1 - 33.3 pg [facility] ([facility]I) Comment:Testing performed by : [address], [address] MCHC 32.8 32.3 - 35.7 g/dL [facility] ([facility]JI) Comment:Testing performed by : [facility], [address] [place] [address]., [address] RDW CV 13.2 11.1 - 14.9 % DA[facility] CONTRERAS (VIJI) Comment:Testing performed by : [facility], [address] [place] [address], [address] RDW SD 49.1(H) 35.7 - 48.1 fL [facility] CONTRERAS (VIJI) Comment:Testing performed by : [facility], [address] [place] [address], [address] NRBC abs 0.00 0.00 - 0.01 K/cumm DAWN CONTRERAS (VIJI) Comment:Testing performed by : [facility], [address] [place] [address], [address] Blood 09/21/2024 8:07 AM CDT 09/21/2024 2:00 PM CDT Jose Armando Meadows MD LAB BLOOD ORDERABLES Stephany ritter Result DAWN CONTRERAS (SENTINEL) 1 [facility] Department [place] [address] * (ABNORMAL) Hemoglobin A1c (09/21/2024 8:07 AM CDT) [facility] Hgb A1C 7.6(H) 4.0 - 5.6 % Comment:Testing performed by : [address], [address] Estimated Average Glucose 171 mg/dL DA[facility] CONTRERAS (VIJI) Comment: The ADA recommends reporting an estimated Average Glucose (eAG) with all Hemoglobin A1c results using the equation derived from a study of 507 normal and diabetic adults. Minority populations were underrepresented and children were not included. (Diabetes Care 31:3851-2452, 2008). The eAG is not equivalent to a fasting glucose. Testing performed by: [address] [address] Blood 09/21/2024 8:07 AM CDT 09/21/2024 2:00 PM CDT Jose Armando Meadows MD LAB BLOOD ORDERABLES Stephany l Result Performing Organization Address [facility]/ZIP Co de Phone Number [facility] (VI[facility]I) 1 [facility] [place] [address] * (ABNORMAL) Albumin Creatinine Ratio, Urine (06/18/2024 10:12 AM RESOURCE CONSERVATIONIST) Albumin Ur 30.9 mg/L Comment: Interpretive Data No reference range established. Current interpretive data was last revised 2018. Testing performed by: [address] [address] Creatinine Ur 84.1 mg/dL [facility] (VIJI) Comment: Interpretive Data No reference range established. Current interpretive data was last revised 2018. Testing performed by: [address] [address] Albumin Creatinine Ratio, Ur 37(H) 1 - 29 mg/g [facility] ([facility]) Comment:Testing performed by : [address] [address] Urine 06/18/2024 10:1 2 AM RESOURCE CONSERVATIONIST 06/18/2024 1:23 PM RESOURCE CONSERVATIONIST Jose Armando Meadows MD LAB URINE ORDERABLES Stephany l Result Performing Organization Address [facility] Co de Phone Number [facility] ([facility]) 1 [facility] [employer] [address] * (ABNORMAL) Lipid panel (06/18/2024 10:12 AM RESOURCE CONSERVATIONIST) Cholesterol 88 30 - 199 mg/dL Comment: [...] last revised on 2017. Testing performed by: [facility], [address] [place] [address]., [address] Triglycerides 72 <=149 mg/dL DA[facility] CONTRERAS (VIJI) [...] last revised on 2017. Testing performed by: [facility], [address] [place] [address]., [address] HDL 38(L) >=40 mg/dL [facility] Do (VIJI) [...] last revised on 2017. Testing performed by: [facility], [address] [place] [address]., [address] LDL, calculated 34 <=129 mg/dL DAWN OCNTRERAS (VIJI) Comment: Interpretive Data Ages < or = 19 years Acceptable: <110 mg/dL Borderline high: 110-129 mg/dL High: >or= 130 mg/dL Ages > or = 20 years Optimal: <100 mg/dL Near optimal: 100-129 mg/dL Borderline high: 130-159 mg/dL High: >160 mg/dL Calculated using the Caro LDL-C estimating equation. This equation was implemented [...] last revised on 2023. Testing performed by: [facility], [address] [place] [address]., [address] Non-HDL Cholesterol 50 mg/dL DA[facility] CONTRERAS (VIJI) [...] last revised on 2017. Testing performed by: [facility], [address] [place] [address]., [address] Chol/HDL ratio 2 CL CONTRERAS (VIJI) Comment:Testing performed by : [facility], [address] [place] [address]., [address] Blood 06/18/2024 10:1 2 AM RESOURCE CONSERVATIONIST 06/18/2024 1:23 PM RESOURCE CONSERVATIONIST Jose Armando Meadows MD LAB BLOOD ORDERABLES Stephany l Result DAWN DIANE (SENTINEL) 1 [facility] [employer] [place] [address] * Diabetic Eye Exam (04/18/2023) Historical Provider HEALTH MAINTENANCE Final Result * COLONOSCOPY (06/12/2021 7:26 AM RESOURCE CONSERVATIONIST) Anatomical Region Laterality Modality Other Narrative Procedure Note Sumit Fuller MD - 06/12/2021 7:[address] [facility] Patient Name: Shea Payne Procedure Date: 06/12/2021 7:26 AM Date of : 1945 Admit Type: Outpatient Age: 75 Gender: Male Attending MD: Sumit Fuller M.D. Room: [facility] ROOM 2 Note Status: Finalized Patient [...] scope was passed under direct vision. TheColonoscope [id number] was introduced through the anus and advanced [...] 7:26 AM Procedure Code(s): --- Professional --- 77492, Colonoscopy, flexible; with biopsy, single or multiple Diagnosis Code(s): --- Professional --- K57.30, Diverticulosis of large intestine without perforation orabscess without bleeding Z80.0, Family history of malignant neoplasm of digestive organs K63.5, Polyp of colon K64.9, Unspecified hemorrhoids Z86.010, Personal history of colonic polyps CPT copyright 2019 [employer]. All rights reserved. The codes documented in this report are preliminary and upon harness racing handicapper reviewmay be revised to meet current compliance requirements. Recognized by the [employer] for promoting quality in endoscopy Sumit Fuller MD ENDOSCOPY PROCEDURES Final Re sult from Last 3 Months or Most Recently Relevant to Health [place] [address] MEDICARE [facility] MEDICARE [employer] MEDICARE SUPPLEMENT Advance Directives For more information, please contact: [phone] * Full Code (Latest Code Status on File) Date Activated Date Inactivated Comments 06/12/2021 8:05 AM 06/12/2021 1:44 PM * Full Code Date Activated Date Inactivated Comments 06/12/2021 8:04 AM 06/12/2021 8:05 AM Care Teams Resident Program Specialist Relationship Specialty Start Date End Date Jose Armando Meadows MD [address] [place] [address] PCP - General 08/02/16
--- OUTSIDE RECORDS SUMMARY | 2024-11-03 11:08 | XMS_ITS | Continuity of Care Document ---
Author Organization [facility] Address [address] [place] [address] [address] [place] [address] Phone Care Team Providers Care Surgical Specialist Name Role Phone Rd Cedillo MD, FACS [...] Diagnoses Date Provider Providers Copied on Encounter [facility], [address] [place], [place] [address] [address], [place], [place], [id number], [place] tel:[phone] SEC Aury Contreras No Information 1 Mamadou Sultana. [address], [address], [place], [place], [address], [place]. tel:[phone] [facility], [address], [place], [place], [id number], [place] tel:[phone] SEC [facility] Professional Diabetic eye exam (chief complaint) Age-related nuclear cataract, bilateralType 2 diabetes mellitus without complicationsO ptic cupping of both eyesCorneal scar, right eyeEndothelial corneal dystrophy, bilateral Oct-2 0-202 0 Gustavo Murdock. [address], [address], [place], [place], [address], [place]. tel:[phone] Referring Provider: Christiano Chi OD, [facility] [address] [facility], [place], [address]. tel:[phone] [facility], [address] [place] [address] [address], [place], [place], [address], [place] [phone] SEC [facility] Professional No Information Sep-2 9-202 0 Gustavo Murdock. [address], [address], [place], [place], [address], [place]. tel:[phone] [facility], [address], [place], [place], [address], [place] [phone] SEC [facility] Professional Diabetic eye exam (chief complaint) Age-related nuclear cataract, bilateralType 2 diabetes mellitus without complicationsD rusen (degenerative) of macula, right eyeEndothelial corneal dystrophyOptic cupping of both eyesCorneal scar, right eye Oct-1 5-201 9 Gustavo Murdock. [address], [facility] [address], [place], [place], [address], [place]. tel:[phone] Referring Provider: Mathieu Cruz, [address], [place], [address] . tel:[phone] [facility], [address] [place] [address] [address], [place], [place], [address], [place] tel:[phone] SEC [place] Professional Complete Exam (chief complaint) Endothelial corneal dystrophyAge-r elated nuclear cataract, bilateralCorne al scar, right eyePinguecula of both eyesOptic cupping of both eyesType 2 diabetes mellitus without complications 8 Gustavo Murdock. [address] [facility], [address], [place], [place], [address], [place]. tel:[phone] Family History Family Member Type Diagnosis Age At Onset No Information Payers Payer name Insurance type Covered green party ID Authoriza tion(s) Medicare MELLISSA LEON [id number] [employer] Mdcr Supp CI [id number] Social History Type Description Quantity Date Captured [...] ball. Patient states he will be seeing [facility] optical for a glasses change. Patient [...] and PCP treats diab. Patient goes to [facility] for glasses. Complete Exam The 70 [...]
--- NOTE | 2024-11-03 11:21 | ED_ITS ---
HPI - URI/Sore Throat General Chief Complaint: Upper Respiratory Infection Stated Complaint: Covid Positive Time Seen by Provider: 11/03/24 11:03 Source: patient, family () and RN notes reviewed Mode of arrival: ambulatory Limitations: no limitations History of Present Illness HPI Narrative: Patient presents today complaining of body aches, nasal congestion and sinus pressure since yesterday. Denies any additional symptoms to include cough, fever, chest pain, shortness of breath, ear pain, sore throat. He tested positive for COVID-19 this morning at home. He has been taking some Tylenol Sinus medication which has provided some relief. He has not received the to most previous COVID vaccines. He has had COVID in the past. History of type 2 diabetes for which he takes Jardiance with a most recent A1c of 7.7. Related Data Home Medications ?Medication ?Instructions ?Recorded ?Confirmed ?Last Taken ?Type ascorbic acid (vitamin C) 1,000 mg 1 g PO DAILY 12/08/19 02/12/24 Unknown History tablet (Vitamin C) cinnamon bark 500 mg capsule 500 mg PO DAILY 12/08/19 02/12/24 12/09/19 History (Cinnamon) flaxseed oil 1,000 mg capsule 1,000 mg PO DAILY 12/08/19 02/12/24 12/09/19 History metformin 500 mg tablet 1,000 mg PO BID 12/08/19 02/12/24 12/09/19 History omega-3 fatty acids-fish oil 360 1 cap PO DAILY 12/08/19 02/12/24 12/09/19 History mg-1,200 mg capsule (Fish Oil) tamsulosin 0.4 mg capsule 0.4 mg PO HS 12/08/19 02/12/24 12/09/19 History rosuvastatin 20 mg tablet 20 mg PO DAILY 01/12/23 02/12/24 Unknown History prednisolone acetate 1 % eye drp 02/29/24 02/29/24 Unknown History drops,suspension Probiotic 11/03/24 Unknown History aspirin 11/03/24 Unknown History Allergies Allergy/AdvReac Type Severity Reaction Status Date / Time bacitracin Allergy Unknown Nausea and Verified 11/03/24 11:03 Vomiting neomycin Allergy Unknown SKIN Verified 11/03/24 11:03 IRRITATION polymyxin B Allergy Unknown SKIN Verified 11/03/24 11:03 IRRITATION iohexol (From contrast - CT, AdvReac Intermediate Flushing Verified 11/03/24 11:03 X-RAY) Review of Systems Review of Systems: CONSTITUTIONAL: Denies fever, chills, or sweats.+ body aches EYES: Denies visual changes, redness, or discharge. ENT: Denies rhinorrhea, sore throat, or otalgia.+ congestion CARDIOVASCULAR: Denies chest pain, palpitations, or edema. RESPIRATORY: Denies cough or dyspnea. GASTROINTESTINAL: Denies abdominal pain, nausea, vomiting, or diarrhea. GENITOURINARY: Denies dysuria or hematuria. SKIN: Denies rash, itching, or wounds. MUSCULOSKELETAL: Denies back pain, joint pain, or myalgia. NEUROLOGIC: Denies headache, numbness, tingling, or weakness. PSYCH: Denies depression or anxiety. [facility] Past Medical History Medical History Diabetes type 2, controlled DAPHNEY (obstructive sleep apnea) CPAP Surgical History Surgical History No pertinent past surgical history Family History Family History Mother Family history non-contributory Social History Social History Smoking status: Never smoker Alcohol intake: never Substance use: never Living arrangements: with family Gender identity (if verbalized by the patient): Male Sexual Orientation (if Verbalized by the Patient): Straight or Heterosexual Spiritual care concerns: No Comments At time of signature, I have reviewed and agree with nursing past medical, surgical, social and family history unless otherwise noted. Please see nursing chart for further information. There is no relevant family history pertinent to the presenting complaint Exam Narrative: GENERAL: Well-appearing, well-nourished, and in no acute distress. HEAD: Normocephalic, atraumatic. EYES: EOMI. No redness or drainage. Conjunctivae normal. ENT: Mucous membranes pink and moist. Nares mildly congested. No rhinorrhea. TMs normal bilaterally. Throat normal. Uvula midline. NECK: Normal AROM. Supple. No lymphadenopathy. CHEST: No respiratory distress. Clear to auscultation. HEART: Regular rate and rhythm. No murmur appreciated. EXTREMITIES: Normal range of motion. No edema. SKIN: Warm, dry, no rash. Capillary refill normal. Normal skin turgor. NEURO: No focal deficits. Alert and oriented x3. Gait steady. PSYCH: Normal affect. No signs of depression or anxiety. Course Course Level of Care: Express Care Visit Vital Signs Vital signs: Vital Signs Temperature 97.6 F 11/03/24 10:59 Pulse Rate 67 11/03/24 10:59 Respiratory Rate 18 11/03/24 10:59 Blood Pressure 135/57 L 11/03/24 10:59 Pulse Oximetry 100 11/03/24 10:59 Oxygen Delivery Room Air 11/03/24 10:59 Temperature 97.6 F 11/03/24 10:59 Pulse Rate 67 11/03/24 10:59 Respiratory Rate 18 11/03/24 10:59 Blood Pressure 135/57 L 11/03/24 10:59 Pulse Oximetry 100 11/03/24 10:59 Oxygen Delivery Room Air 11/03/24 10:59 Reviewed MDM - URI/Sore Throat MDM Narrative Medical decision making narrative: Pleasant 79-year-old male patient who tested positive for COVID-19 prior to arrival today with symptoms since yesterday of nasal congestion and body aches. and patient inquiring about Paxlovid use. We discussed possible side effects as well as benefits of taking this medication, as well as needing to stop his statin for duration of treatment. Discussed with patient that his symptoms are mild at this time, and that if he did not want to start Paxlovid, in my opinion, I would support this choice. I offered to send prescription to the pharmacy in case he started feeling worse over the next couple of days, as he could started at any time in a 5 day window from onset of symptoms. Patient ultimately declined. At this time he is not experiencing any severe symptoms such as chest pain or shortness of breath that would warrant transfer to the emergency department. We discussed these series symptoms that would warrant additional evaluation after discharge from [facility]. Vital signs stable. Patient discharged home with strict ED precautions and instructions for OTC home treatment that would be safe for diabetics. Patient and agree with plan. Differential Diagnosis Differential diagnosis: Likely upper respiratory infection, sinusitis, viral infection and other (COVID-19) Critical Care Time Critical Care Time Critical Care Time: No Discharge Plan Discharge Clinical Impression: COVID-19 Patient Disposition: Home Condition: Stable Instructions: COVID-19 (Coronavirus Disease 2019) (ED) Additional Instructions: COVID-19 is not treated with antibiotics. You have declined prescription for Paxlovid today. Virus symptoms can last for up to 7-10days. Take Tylenol or ibuprofen for pain or fever. Rest and stay hydrated. Follow up with your PCP in 7 days if symptoms are not improving, or sooner if symptoms worsen. Go to the ER immediately if you develop shortness of breath, chest pain, difficulty swallowing, or any other concerning symptoms. Your blood pressure was elevated above 120/80 today at Urgent Care. This puts you above the threshold for follow up. Please schedule a followup visit with your personal physician as soon as possible, for further evaluation and treatment. Even blood pressure exceeding 120/80 may indicate pre-hypertension. Patient Language: B[place] Prescriptions: No Action rosuvastatin 20 mg tablet 20 mg PO DAILY prednisolone acetate 1 % drops,suspension aspirin Probiotic metformin 500 mg tablet 1,000 mg PO BID ascorbic acid (vitamin C) [Vitamin C] 1,000 mg Tablet 1 g PO DAILY flaxseed oil 1,000 mg Capsule 1,000 mg PO DAILY tamsulosin 0.4 mg capsule 0.4 mg PO HS cinnamon bark [Cinnamon] 500 mg Capsule 500 mg PO DAILY omega-3 fatty acids-fish oil [Fish Oil] 360-1,200 mg Capsule 1 cap PO DAILY Follow-up/Referrals: Harms,Jose Armando Ramirez M.D. [Primary Care Provider] - Time of Disposition: 11:20
== END 2024-11-03 11:27 | disposition home or self-care (01) ==
PROVIDERS: Emergency Provider Nurse Practitioner; PCP Family Medicine
DX: U07.1 COVID-19 (principal); E11.9 Type 2 diabetes mellitus without complications; Z79.84 Long term (current) use of oral hypoglycemic drugs; G47.33 Obstructive sleep apnea (adult) (pediatric)
CPT/HCPCS: 99211; G0463